=== PATIENT | female | born 1945 | race Caucasian/White ===

== ENCOUNTER 2018-09-30 14:11 | Inpatient (IN) | payer MEDICARE, SELFPAY ==
[2018-09-30] VITALS (8 sets, daily range): BP systolic 121–151; BP diastolic 58–91; PULSE 81–96; RESP 18–24; TEMP 36.4–36.9; O2SAT 88–97; BMI 33.9
--- NOTE | 2018-09-30 14:27 | ED.URI ---
HPI - URI/Sore Throat <NICHOLAS Smith - Last Filed: 09/30/18 21:54> General Chief Complaint: Upper Respiratory Symptoms Stated Complaint: SOB Time Seen by Provider: 09/30/18 14:27 Source: patient Mode of arrival: ambulatory Limitations: no limitations History of Present Illness HPI Narrative: 72-year-old female with history of hypertension and hypothyroidism that is a former smoker here for complaint of shortness of breath with cough that has been productive at times over the past 3 days. She states she has also had a fever. She states she has had yellow exudate over the past couple of days. She denies any chest pain. Positive p.o. intake although she has had a decreased appetite. No nausea or vomiting. She denies any contacts with similar symptoms. She also reports having generalized malaise. MD Complaint: fever and cough Related Data Home Medications Medication Instructions Recorded Confirmed Stool Softener 1 dose PO PRN PRN 09/30/18 09/30/18 Vitamins 1 dose PO DAILY 09/30/18 09/30/18 hydrochlorothiazide 50 mg PO DAILY 09/30/18 09/30/18 levothyroxine 50 mcg PO DAILY 09/30/18 09/30/18 metoprolol succinate 25 mg PO DAILY 09/30/18 09/30/18 mirtazapine 30 mg PO BEDTIME 09/30/18 09/30/18 Allergies Allergy/AdvReac Type Severity Reaction Status Date / Time Penicillins Allergy Hives Verified 09/30/18 14:19 Review of Systems <NICHOLAS Smith - Last Filed: 09/30/18 21:54> Constitutional Reports chills, Reports fever(s), Denies lethargy and Denies weakness Eyes Denies change in vision, Denies eye discharge, Denies irritation and Denies loss of vision ENT Ears, Nose, Mouth, and Throat: Denies change in voice, Denies neck pain, Denies sore throat and Denies throat swelling Cardiovascular Denies chest pain, Denies irregular heart rhythm, Denies lightheadedness, Denies palpitations, Reports dyspnea and Denies orthopnea Respiratory Reports chest congestion, Reports dyspnea and Denies wheezing Gastrointestinal Gastrointestinal: Denies abdominal pain, Denies change in bowel habits, Denies diarrhea, Denies nausea and Denies vomiting Genitourinary Denies hematuria, Denies flank pain, Denies urinary incontinence and Denies urinary urgency Musculoskeletal Denies neck pain Integumentary/Breasts Denies pruritus, Denies erythema, Denies rash and Denies wounds Neurologic Denies confusion, Denies loss of vision and Denies weakness Psychiatric Denies anxiety, Denies confusion, Denies depression, Denies homicidal ideation and Denies suicidal ideation Endocrine Denies palpitations Hematologic/Lymphatic Denies easy bruising Allergic/Immunologic Denies urticaria, Denies throat swelling and Denies wheezing PFSH <NICHOLAS Smith - Last Filed: 09/30/18 21:54> Medical History Hypertension (Acute) Hypothyroidism (Acute) Surgical History H/O hysterectomy for benign disease (Acute) History of tonsillectomy (Acute) Family History Mother Cerebral aneurysm Social History household members: spouse Smoking Status: Former smoker alcohol intake: never Family History Mother Cerebral aneurysm Social History household members: spouse Smoking Status: Former smoker alcohol intake: never Exam <NICHOLAS Smith - Last Filed: 09/30/18 21:54> Initial Vital Signs Initial Vital Signs: Vital Signs Pulse Rate 96 H 09/30/18 14:12 Respiratory Rate 20 09/30/18 14:12 Blood Pressure 151/91 H 09/30/18 14:12 Pulse Oximetry 88 L 09/30/18 14:12 Const General: cooperative and well developed Nutritional Appearance: well nourished Orientation: alert, awake, oriented x3 and not confused [facility] Face and sinus: no sinus tenderness Mouth: oral mucosae normal and moist mucous membranes Throat: posterior oropharynx normal Eyes Conjunctivae: conjunctivae normal Sclera: sclerae normal Pupils: PERRL EOM: EOM intact bilaterally Resp Effort & Inspection: normal respiratory effort, able to speak in complete sentences, no respiratory distress and no use of accessory muscles Auscultation: clear to auscultation bilaterally, no rales, no rhonchi and no wheezes Cardio Rate: regular rate Rhythm: regular rhythm Heart Sounds: no click, no gallops, no murmurs and no rubs Pulses: normal peripheral pulses Skin General: no rashes or lesions noted, No jaundice and No petechiae Neuro General: alert, oriented x3, gait normal and no focal motor deficits Speech: speech normal <Jose Antonio Pino DO - Last Filed: 10/01/18 18:24> Initial Vital Signs Initial Vital Signs: Vital Signs Pulse Rate 96 H 09/30/18 14:12 Respiratory Rate 20 09/30/18 14:12 Blood Pressure 151/91 H 09/30/18 14:12 Pulse Oximetry 88 L 09/30/18 14:12 Course <NICHOLAS Smith - Last Filed: 09/30/18 21:54> Orders Ordered: Acetaminophen (Tylenol) 650 mg PO Q6HR PRN PRN Reason: As Needed for Fever/Mild Pain Last Admin: 09/30/18 19:42 Dose: 650 mg Hydrocodone Bitart/Acetaminophen (Alicia 5/325) 1 tab PO Q4HR PRN PRN Reason: Pain, Moderate (4-6) Albuterol (Ventolin) 2.5 mg INH [id number] [facility] Last Admin: 10/01/18 13:18 Dose: 2.5 mg Admin: 10/01/18 09:11 Dose: 2.5 mg Admin: 10/01/18 05:00 Dose: 2.5 mg Admin: 09/30/18 23:46 Dose: Not Given Admin: 09/30/18 23:45 Dose: Not Given Bisacodyl (Dulcolax) 10 mg PO DAILY PRN PRN Reason: Constipation Last Admin: 09/30/18 21:11 Dose: 10 mg Enoxaparin Sodium (Lovenox) 40 mg SUBCUT DAILY [facility] Last Admin: 10/01/18 08:29 Dose: 40 mg Dextrose/Sodium Chloride (Dextrose 5%-0.9% Ns) 1,000 mls @ 100 mls/hr IV CONT [facility] Last Admin: 10/01/18 16:32 Dose: 100 mls/hr Infusion: 10/01/18 14:31 Dose: 100 mls/hr Admin: 10/01/18 04:31 Dose: 100 mls/hr Infusion: 10/01/18 04:31 Dose: 100 mls/hr Admin: 09/30/18 19:43 Dose: 100 mls/hr Ibuprofen (Advil) 600 mg PO Q6H PRN PRN Reason: As Needed for Fever/Mild Pain Levothyroxine Sodium (Synthroid) 50 mcg PO 0600 [facility] Last Admin: 10/01/18 07:01 Dose: 50 mcg Metoprolol Succinate (Toprol Xl) 25 mg PO DAILY [facility] Last Admin: 10/01/18 08:29 Dose: 25 mg Mirtazapine (Remeron) 30 mg PO BEDTIME [facility] Last Admin: 09/30/18 21:11 Dose: 30 mg Ondansetron HCl (Zofran) 4 mg IV Q8HR PRN PRN Reason: Nausea And Vomiting Oseltamivir Phosphate (Tamiflu) 75 mg PO BID [facility] Last Admin: 10/01/18 08:29 Dose: 75 mg Discontinued Medications Albuterol/Ipratropium (Duoneb) 3 ml INH NOW ONE Stop: 09/30/18 14:51 Last Admin: 09/30/18 15:31 Dose: 3 ml Sodium Chloride (Normal Saline 0.9%) 1,000 mls @ 1,000 mls/hr IV BOLUS ONE Stop: 09/30/18 15:49 Last Infusion: 09/30/18 16:44 Dose: 0 mls/hr Admin: 09/30/18 15:12 Dose: 1,000 mls/hr Oseltamivir Phosphate (Tamiflu) 75 mg PO NOW ONE Stop: 09/30/18 16:21 Last Admin: 09/30/18 16:37 Dose: 75 mg Vital Signs - 8 hr 10/01/18 11:30 10/01/18 13:27 10/01/18 15:30 Temperature 96.7 F L Pulse Rate 80 71 Respiratory Rate 18 18 Blood Pressure 130/89 Pulse Oximetry 93 93 90 L 10/01/18 15:35 10/01/18 15:43 10/01/18 16:59 Temperature 98.0 F Pulse Rate 78 Respiratory Rate 20 Blood Pressure 116/56 L Pulse Oximetry 96 94 94 <Jose Antonio Pino DO - Last Filed: 10/01/18 18:24> Orders Ordered: Acetaminophen (Tylenol) 650 mg PO Q6HR PRN PRN Reason: As Needed for Fever/Mild Pain Last Admin: 09/30/18 19:42 Dose: 650 mg Hydrocodone Bitart/Acetaminophen (Alicia 5/325) 1 tab PO Q4HR PRN PRN Reason: Pain, Moderate (4-6) Albuterol (Ventolin) 2.5 mg INH [id number] [facility] Last Admin: 10/01/18 13:18 Dose: 2.5 mg Admin: 10/01/18 09:11 Dose: 2.5 mg Admin: 10/01/18 05:00 Dose: 2.5 mg Admin: 09/30/18 23:46 Dose: Not Given Admin: 09/30/18 23:45 Dose: Not Given Bisacodyl (Dulcolax) 10 mg PO DAILY PRN PRN Reason: Constipation Last Admin: 09/30/18 21:11 Dose: 10 mg Enoxaparin Sodium (Lovenox) 40 mg SUBCUT DAILY [facility] Last Admin: 10/01/18 08:29 Dose: 40 mg Dextrose/Sodium Chloride (Dextrose 5%-0.9% Ns) 1,000 mls @ 100 mls/hr IV CONT [facility] Last Admin: 10/01/18 16:32 Dose: 100 mls/hr Infusion: 10/01/18 14:31 Dose: 100 mls/hr Admin: 10/01/18 04:31 Dose: 100 mls/hr Infusion: 10/01/18 04:31 Dose: 100 mls/hr Admin: 09/30/18 19:43 Dose: 100 mls/hr Ibuprofen (Advil) 600 mg PO Q6H PRN PRN Reason: As Needed for Fever/Mild Pain Levothyroxine Sodium (Synthroid) 50 mcg PO 0600 [facility] Last Admin: 10/01/18 07:01 Dose: 50 mcg Metoprolol Succinate (Toprol Xl) 25 mg PO DAILY [facility] Last Admin: 10/01/18 08:29 Dose: 25 mg Mirtazapine (Remeron) 30 mg PO BEDTIME [facility] Last Admin: 09/30/18 21:11 Dose: 30 mg Ondansetron HCl (Zofran) 4 mg IV Q8HR PRN PRN Reason: Nausea And Vomiting Oseltamivir Phosphate (Tamiflu) 75 mg PO BID [facility] Last Admin: 10/01/18 08:29 Dose: 75 mg Discontinued Medications Albuterol/Ipratropium (Duoneb) 3 ml INH NOW ONE Stop: 09/30/18 14:51 Last Admin: 09/30/18 15:31 Dose: 3 ml Sodium Chloride (Normal Saline 0.9%) 1,000 mls @ 1,000 mls/hr IV BOLUS ONE Stop: 09/30/18 15:49 Last Infusion: 09/30/18 16:44 Dose: 0 mls/hr Admin: 09/30/18 15:12 Dose: 1,000 mls/hr Oseltamivir Phosphate (Tamiflu) 75 mg PO NOW ONE Stop: 09/30/18 16:21 Last Admin: 09/30/18 16:37 Dose: 75 mg Vital Signs - 8 hr 10/01/18 11:30 10/01/18 13:27 10/01/18 15:30 Temperature 96.7 F L Pulse Rate 80 71 Respiratory Rate 18 18 Blood Pressure 130/89 Pulse Oximetry 93 93 90 L 10/01/18 15:35 10/01/18 15:43 10/01/18 16:59 Temperature 98.0 F Pulse Rate 78 Respiratory Rate 20 Blood Pressure 116/56 L Pulse Oximetry 96 94 94 MDM - URI/Sore Throat <NICHOLAS Smith - Last Filed: 09/30/18 21:54> Lab Data Result diagrams: 10/01/18 05:07 10/01/18 05:07 Lab Results 09/30/18 09/30/18 09/30/18 Range/Units 14:42 14:43 14:43 WBC 6.9 (4.5-11.0) X10^3/uL RBC 5.19 (4.0-5.2) X10^6/uL Hgb 16.3 H (12.0-16.0) g/dL Hct 48.7 H (36-46) % MCV 93.9 (80-100) fL MCH 31.4 (26-34) PG MCHC 33.5 (30-36) % RDW 14.5 (11.6-14.8) % Plt Count 176 (150-400) X10^3/uL Neut % (Auto) 59.9 (50-75) % Lymph % (Auto) 23.8 L (25-40) % Hunt % (Auto) 15.2 H (3-14) % Eos % (Auto) 0.4 L (2-4) % Baso % (Auto) 0.7 (0-2) % Neut # (Auto) 4100 (1922-2223) /uL Lymph # (Auto) 1600 (6062-8808) /uL Hunt # (Auto) 1000 H (0-900) /uL Eos # (Auto) 0 (0-450) /uL Baso # (Auto) 100 (0-100) /uL D-Dimer (<230) ng/mL Sodium (137-145) mmol/L Potassium (3.4-5.1) mmol/L Chloride (98-107) mmol/L Carbon Dioxide (22-32) mmol/L BUN (7-17) mg/dL Creatinine (0.52-1.04) mg/dL Estimated GFR (>60) mL/min BUN/Creatinine Ratio (6-22) Glucose (80-110) mg/dL Lactate (0.7-2.1) mmol/L Calcium (8.4-10.2) mg/dL Total Bilirubin (0.2-1.3) mg/dL AST (14-36) IU/L ALT (9-52) IU/L Alkaline Phosphatase (38-126) U/L Total Creatine Kinase (30-135) U/L CK-MB (CK-2) (<2.37) ng/mL CK-MB (CK-2) Rel Index (1.5-5.0) % Troponin I (0.01-0.034) ng/mL B-Natriuretic Peptide < 100 (<100) Total Protein (6.3-8.2) g/dL Albumin (3.5-5.0) g/dL Globulin (1.7-4.1) g/dL Albumin/Globulin Ratio (1.0-2.8) Procalcitonin (<0.5) ng/mL Urine Color Yellow Urine Appearance Cloudy Urine pH 6.0 (4.5-8.0) Ur Specific [place] 1.020 (1.000-1.035) Urine Protein 2+ H (Negative) Urine Glucose (UA) Negative (Negative) g/dL Urine Ketones Trace H (NEGATIVE) Urine Occult Blood Negative (Negative) Urine Nitrate Negative (Negative) Urine Bilirubin 1+ H (NEGATIVE) Urine Ictotest Negative (Negative) Urine Urobilinogen 0.2 (0.2) E.U./dL Ur Leukocyte Esterase Negative (NEGATIVE) Urine RBC None seen (0-5/HPF) Urine WBC 0-1/hpf (0-5/HPF) Ur Squamous Epith Cells 1-5 /hpf Amorphous Sediment 2+ Urine Bacteria Few (2-10) H (None) Ur Culture Indicated? Cult not indicated Chlamy pneumoniae PCR (Not Detect) Adenovirus (PCR) (Not Detect) B.parapertussis DNA PCR (Not Detect) Coronavirus OC43 (PCR) (Not Detect) Coronavirus HKU1 (PCR) (Not Detect) Coronavirus 229E (PCR) (Not Detect) Coronavirus NL63 (PCR) (Not Detect) Human Metapneumovir PCR (Not Detect) Influenza Type A (PCR) (Not Detect) Influenza Type B (PCR) (Not Detect) Influenza A & B (PCR) Positive, type a A (Negative) M. pneumoniae (PCR) (Not Detect) Parainfluenza 1 (PCR) (Not Detect) Parainfluenza 2 (PCR) (Not Detect) Parainfluenza 3 (PCR) (Not Detect) Parainfluenza 4 (PCR) (Not Detect) RSV (PCR) (Not Detect) Entero/Rhino (PCR) (Not Detect) 09/30/18 09/30/18 09/30/18 Range/Units 14:43 15:00 15:00 WBC (4.5-11.0) X10^3/uL RBC (4.0-5.2) X10^6/uL Hgb (12.0-16.0) g/dL Hct (36-46) % MCV (80-100) fL MCH (26-34) PG MCHC (30-36) % RDW (11.6-14.8) % Plt Count (150-400) X10^3/uL Neut % (Auto) (50-75) % Lymph % (Auto) (25-40) % Hunt % (Auto) (3-14) % Eos % (Auto) (2-4) % Baso % (Auto) (0-2) % Neut # (Auto) (9578-3719) /uL Lymph # (Auto) (6048-5276) /uL Hunt # (Auto) (0-900) /uL Eos # (Auto) (0-450) /uL Baso # (Auto) (0-100) /uL D-Dimer < 200 (<230) ng/mL Sodium (137-145) mmol/L Potassium (3.4-5.1) mmol/L Chloride (98-107) mmol/L Carbon Dioxide (22-32) mmol/L BUN (7-17) mg/dL Creatinine (0.52-1.04) mg/dL Estimated GFR (>60) mL/min BUN/Creatinine Ratio (6-22) Glucose (80-110) mg/dL Lactate 1.5 (0.7-2.1) mmol/L Calcium (8.4-10.2) mg/dL Total Bilirubin (0.2-1.3) mg/dL AST (14-36) IU/L ALT (9-52) IU/L Alkaline Phosphatase (38-126) U/L Total Creatine Kinase (30-135) U/L CK-MB (CK-2) (<2.37) ng/mL CK-MB (CK-2) Rel Index (1.5-5.0) % Troponin I (0.01-0.034) ng/mL B-Natriuretic Peptide (<100) Total Protein (6.3-8.2) g/dL Albumin (3.5-5.0) g/dL Globulin (1.7-4.1) g/dL Albumin/Globulin Ratio (1.0-2.8) Procalcitonin < 0.05 (<0.5) ng/mL Urine Color Urine Appearance Urine pH (4.5-8.0) Ur Specific [place] (1.000-1.035) Urine Protein (Negative) Urine Glucose (UA) (Negative) g/dL Urine Ketones (NEGATIVE) Urine Occult Blood (Negative) Urine Nitrate (Negative) Urine Bilirubin (NEGATIVE) Urine Ictotest (Negative) Urine Urobilinogen (0.2) E.U./dL Ur Leukocyte Esterase (NEGATIVE) Urine RBC (0-5/HPF) Urine WBC (0-5/HPF) Ur Squamous Epith Cells Amorphous Sediment Urine Bacteria (None) Ur Culture Indicated? Chlamy pneumoniae PCR (Not Detect) Adenovirus (PCR) (Not Detect) B.parapertussis DNA PCR (Not Detect) Coronavirus OC43 (PCR) (Not Detect) Coronavirus HKU1 (PCR) (Not Detect) Coronavirus 229E (PCR) (Not Detect) Coronavirus NL63 (PCR) (Not Detect) Human Metapneumovir PCR (Not Detect) Influenza Type A (PCR) (Not Detect) Influenza Type B (PCR) (Not Detect) Influenza A & B (PCR) (Negative) M. pneumoniae (PCR) (Not Detect) Parainfluenza 1 (PCR) (Not Detect) Parainfluenza 2 (PCR) (Not Detect) Parainfluenza 3 (PCR) (Not Detect) Parainfluenza 4 (PCR) (Not Detect) RSV (PCR) (Not Detect) Entero/Rhino (PCR) (Not Detect) 09/30/18 09/30/18 10/01/18 Range/Units 15:19 22:05 05:07 WBC 5.1 (4.5-11.0) X10^3/uL RBC 4.58 (4.0-5.2) X10^6/uL Hgb 14.2 (12.0-16.0) g/dL Hct 42.8 (36-46) % MCV 93.5 (80-100) fL MCH 31.0 (26-34) PG MCHC 33.1 (30-36) % RDW 14.4 (11.6-14.8) % Plt Count 154 (150-400) X10^3/uL Neut % (Auto) 50.4 (50-75) % Lymph % (Auto) 32.4 (25-40) % Hunt % (Auto) 15.1 H (3-14) % Eos % (Auto) 1.1 L (2-4) % Baso % (Auto) 1.0 (0-2) % Neut # (Auto) 2600 (3773-3224) /uL Lymph # (Auto) 1700 (1935-3417) /uL Hunt # (Auto) 800 (0-900) /uL Eos # (Auto) 100 (0-450) /uL Baso # (Auto) 100 (0-100) /uL D-Dimer (<230) ng/mL Sodium 139 (137-145) mmol/L Potassium 3.7 (3.4-5.1) mmol/L Chloride 97 L (98-107) mmol/L Carbon Dioxide 29 (22-32) mmol/L BUN 30 H (7-17) mg/dL Creatinine 0.70 (0.52-1.04) mg/dL Estimated GFR > 60.0 (>60) mL/min BUN/Creatinine Ratio 42.9 H (6-22) Glucose 111 H (80-110) mg/dL Lactate (0.7-2.1) mmol/L Calcium 9.4 (8.4-10.2) mg/dL Total Bilirubin 0.6 (0.2-1.3) mg/dL AST 43 H (14-36) IU/L ALT 48 (9-52) IU/L Alkaline Phosphatase 76 (38-126) U/L Total Creatine Kinase 132 (30-135) U/L CK-MB (CK-2) 1.29 (<2.37) ng/mL CK-MB (CK-2) Rel Index 1.0 L (1.5-5.0) % Troponin I < 0.012 (0.01-0.034) ng/mL B-Natriuretic Peptide < 100 (<100) Total Protein 8.2 (6.3-8.2) g/dL Albumin 4.5 (3.5-5.0) g/dL Globulin 3.7 (1.7-4.1) g/dL Albumin/Globulin Ratio 1.2 (1.0-2.8) Procalcitonin (<0.5) ng/mL Urine Color Urine Appearance Urine pH (4.5-8.0) Ur Specific [place] (1.000-1.035) Urine Protein (Negative) Urine Glucose (UA) (Negative) g/dL Urine Ketones (NEGATIVE) Urine Occult Blood (Negative) Urine Nitrate (Negative) Urine Bilirubin (NEGATIVE) Urine Ictotest (Negative) Urine Urobilinogen (0.2) E.U./dL Ur Leukocyte Esterase (NEGATIVE) Urine RBC (0-5/HPF) Urine WBC (0-5/HPF) Ur Squamous Epith Cells Amorphous Sediment Urine Bacteria (None) Ur Culture Indicated? Chlamy pneumoniae PCR Not detected (Not Detect) Adenovirus (PCR) Not detected (Not Detect) B.parapertussis DNA PCR Not detected (Not Detect) Coronavirus OC43 (PCR) Not detected (Not Detect) Coronavirus HKU1 (PCR) Not detected (Not Detect) Coronavirus 229E (PCR) Not detected (Not Detect) Coronavirus NL63 (PCR) Not detected (Not Detect) Human Metapneumovir PCR Not detected (Not Detect) Influenza Type A (PCR) Detected H (Not Detect) Influenza Type B (PCR) Not detected (Not Detect) Influenza A & B (PCR) (Negative) M. pneumoniae (PCR) Not detected (Not Detect) Parainfluenza 1 (PCR) Not detected (Not Detect) Parainfluenza 2 (PCR) Not detected (Not Detect) Parainfluenza 3 (PCR) Not detected (Not Detect) Parainfluenza 4 (PCR) Not detected (Not Detect) RSV (PCR) Not detected (Not Detect) Entero/Rhino (PCR) Not detected (Not Detect) 10/01/18 Range/Units 05:07 WBC (4.5-11.0) X10^3/uL RBC (4.0-5.2) X10^6/uL Hgb (12.0-16.0) g/dL Hct (36-46) % MCV (80-100) fL MCH (26-34) PG MCHC (30-36) % RDW (11.6-14.8) % Plt Count (150-400) X10^3/uL Neut % (Auto) (50-75) % Lymph % (Auto) (25-40) % Hunt % (Auto) (3-14) % Eos % (Auto) (2-4) % Baso % (Auto) (0-2) % Neut # (Auto) (0339-5544) /uL Lymph # (Auto) (2190-6696) /uL Hunt # (Auto) (0-900) /uL Eos # (Auto) (0-450) /uL Baso # (Auto) (0-100) /uL D-Dimer (<230) ng/mL Sodium 142 (137-145) mmol/L Potassium 3.4 (3.4-5.1) mmol/L Chloride 101 (98-107) mmol/L Carbon Dioxide 33 H (22-32) mmol/L BUN 19 H (7-17) mg/dL Creatinine 0.70 (0.52-1.04) mg/dL Estimated GFR > 60.0 (>60) mL/min BUN/Creatinine Ratio 27.1 H (6-22) Glucose 112 H (80-110) mg/dL Lactate (0.7-2.1) mmol/L Calcium 8.6 (8.4-10.2) mg/dL Total Bilirubin 0.4 (0.2-1.3) mg/dL AST 40 H (14-36) IU/L ALT 44 (9-52) IU/L Alkaline Phosphatase 64 (38-126) U/L Total Creatine Kinase (30-135) U/L CK-MB (CK-2) (<2.37) ng/mL CK-MB (CK-2) Rel Index (1.5-5.0) % Troponin I (0.01-0.034) ng/mL B-Natriuretic Peptide (<100) Total Protein 7.0 (6.3-8.2) g/dL Albumin 3.8 (3.5-5.0) g/dL Globulin 3.2 (1.7-4.1) g/dL Albumin/Globulin Ratio 1.2 (1.0-2.8) Procalcitonin (<0.5) ng/mL Urine Color Urine Appearance Urine pH (4.5-8.0) Ur Specific [place] (1.000-1.035) Urine Protein (Negative) Urine Glucose (UA) (Negative) g/dL Urine Ketones (NEGATIVE) Urine Occult Blood (Negative) Urine Nitrate (Negative) Urine Bilirubin (NEGATIVE) Urine Ictotest (Negative) Urine Urobilinogen (0.2) E.U./dL Ur Leukocyte Esterase (NEGATIVE) Urine RBC (0-5/HPF) Urine WBC (0-5/HPF) Ur Squamous Epith Cells Amorphous Sediment Urine Bacteria (None) Ur Culture Indicated? Chlamy pneumoniae PCR (Not Detect) Adenovirus (PCR) (Not Detect) B.parapertussis DNA PCR (Not Detect) Coronavirus OC43 (PCR) (Not Detect) Coronavirus HKU1 (PCR) (Not Detect) Coronavirus 229E (PCR) (Not Detect) Coronavirus NL63 (PCR) (Not Detect) Human Metapneumovir PCR (Not Detect) Influenza Type A (PCR) (Not Detect) Influenza Type B (PCR) (Not Detect) Influenza A & B (PCR) (Negative) M. pneumoniae (PCR) (Not Detect) Parainfluenza 1 (PCR) (Not Detect) Parainfluenza 2 (PCR) (Not Detect) Parainfluenza 3 (PCR) (Not Detect) Parainfluenza 4 (PCR) (Not Detect) RSV (PCR) (Not Detect) Entero/Rhino (PCR) (Not Detect) Imaging Data Chest x-ray: Radiologist's impression: [address] [address] XRay Report Signed Patient: Zuleima Mendoza SMR#: [id number] : 8Acct:[id number] Age/Sex: 72 / FDate of Service: 09/30/18 Loc: ED Accession Number: [id number] Procedure: XR chest 1V Ordering Provider: Yovani Le PROCEDURE: XR CHEST 1V INDICATIONS: Cough fever shortness of breath TECHNIQUE: One view of the chest was acquired. COMPARISON: None. FINDINGS: Surgical changes and devices: None. Lungs and pleura: Lungs are abnormal with a generalized pulmonary edema pattern. No pleural effusions or pneumothorax. Mediastinum: Mediastinal contours appear normal. Heart size is at the upper limits of normal. Bones and chest wall: No suspicious bony lesions. Overlying soft tissues appear unremarkable. IMPRESSION: Mild pulmonary edema pattern, heart size at the upper limits of normal. A focal pneumonia is not found. Dictated by: Ben Roman M.D. on 09/30/2018 at 15:12 Approved by: Ben Roman M.D. on 09/30/2018 at 15:13 ECG Data Interpretation: EKG shows sinus rhythm with no ST elevation or depression. Ventricular rate of 94. Pr interval of 156. QRS duration of 95. QTC of 402. MDM Narrative Medical decision making narrative: CBC was obtained and was negative for elevated white count and otherwise unremarkable. chemistry panel was obtained was also unremarkable. Cardiac enzymes were obtained and were negative. A procalcitonin was negative. BNP was normal. Lactate was normal. Urinalysis was negative for urinary tract infection. Chest x-ray was obtained and read as generalized pulmonary edema pattern no signs of pneumonia. Influenza swab was obtained was positive. She was given a DuoNeb treatment in the emergency room which seemed to help her symptoms make her feel better however she still was not able to maintain O2 saturations on room air and would drop into the mid to high 80s. She was started on Tamiflu a in the emergency room. Due to a decreased oxygen saturation she is admitted to the hospital for supportive care. Discussed case with Dr. Munson who accepted patient. <Jose Antonio Pino, DO - Last Filed: 10/01/18 18:24> Lab Data Lab Results 09/30/18 09/30/18 09/30/18 Range/Units 14:42 14:43 14:43 WBC 6.9 (4.5-11.0) X10^3/uL RBC 5.19 (4.0-5.2) X10^6/uL Hgb 16.3 H (12.0-16.0) g/dL Hct 48.7 H (36-46) % MCV 93.9 (80-100) fL MCH 31.4 (26-34) PG MCHC 33.5 (30-36) % RDW 14.5 (11.6-14.8) % Plt Count 176 (150-400) X10^3/uL Neut % (Auto) 59.9 (50-75) % Lymph % (Auto) 23.8 L (25-40) % Hunt % (Auto) 15.2 H (3-14) % Eos % (Auto) 0.4 L (2-4) % Baso % (Auto) 0.7 (0-2) % Neut # (Auto) 4100 (8150-2830) /uL Lymph # (Auto) 1600 (2964-3841) /uL Hunt # (Auto) 1000 H (0-900) /uL Eos # (Auto) 0 (0-450) /uL Baso # (Auto) 100 (0-100) /uL D-Dimer (<230) ng/mL Sodium (137-145) mmol/L Potassium (3.4-5.1) mmol/L Chloride (98-107) mmol/L Carbon Dioxide (22-32) mmol/L BUN (7-17) mg/dL Creatinine (0.52-1.04) mg/dL Estimated GFR (>60) mL/min BUN/Creatinine Ratio (6-22) Glucose (80-110) mg/dL Lactate (0.7-2.1) mmol/L Calcium (8.4-10.2) mg/dL Total Bilirubin (0.2-1.3) mg/dL AST (14-36) IU/L ALT (9-52) IU/L Alkaline Phosphatase (38-126) U/L Total Creatine Kinase (30-135) U/L CK-MB (CK-2) (<2.37) ng/mL CK-MB (CK-2) Rel Index (1.5-5.0) % Troponin I (0.01-0.034) ng/mL B-Natriuretic Peptide < 100 (<100) Total Protein (6.3-8.2) g/dL Albumin (3.5-5.0) g/dL Globulin (1.7-4.1) g/dL Albumin/Globulin Ratio (1.0-2.8) Procalcitonin (<0.5) ng/mL Urine Color Yellow Urine Appearance Cloudy Urine pH 6.0 (4.5-8.0) Ur Specific [place] 1.020 (1.000-1.035) Urine Protein 2+ H (Negative) Urine Glucose (UA) Negative (Negative) g/dL Urine Ketones Trace H (NEGATIVE) Urine Occult Blood Negative (Negative) Urine Nitrate Negative (Negative) Urine Bilirubin 1+ H (NEGATIVE) Urine Ictotest Negative (Negative) Urine Urobilinogen 0.2 (0.2) E.U./dL Ur Leukocyte Esterase Negative (NEGATIVE) Urine RBC None seen (0-5/HPF) Urine WBC 0-1/hpf (0-5/HPF) Ur Squamous Epith Cells 1-5 /hpf Amorphous Sediment 2+ Urine Bacteria Few (2-10) H (None) Ur Culture Indicated? Cult not indicated Chlamy pneumoniae PCR (Not Detect) Adenovirus (PCR) (Not Detect) B.parapertussis DNA PCR (Not Detect) Coronavirus OC43 (PCR) (Not Detect) Coronavirus HKU1 (PCR) (Not Detect) Coronavirus 229E (PCR) (Not Detect) Coronavirus NL63 (PCR) (Not Detect) Human Metapneumovir PCR (Not Detect) Influenza Type A (PCR) (Not Detect) Influenza Type B (PCR) (Not Detect) Influenza A & B (PCR) Positive, type a A (Negative) M. pneumoniae (PCR) (Not Detect) Parainfluenza 1 (PCR) (Not Detect) Parainfluenza 2 (PCR) (Not Detect) Parainfluenza 3 (PCR) (Not Detect) Parainfluenza 4 (PCR) (Not Detect) RSV (PCR) (Not Detect) Entero/Rhino (PCR) (Not Detect) 09/30/18 09/30/18 09/30/18 Range/Units 14:43 15:00 15:00 WBC (4.5-11.0) X10^3/uL RBC (4.0-5.2) X10^6/uL Hgb (12.0-16.0) g/dL Hct (36-46) % MCV (80-100) fL MCH (26-34) PG MCHC (30-36) % RDW (11.6-14.8) % Plt Count (150-400) X10^3/uL Neut % (Auto) (50-75) % Lymph % (Auto) (25-40) % Hunt % (Auto) (3-14) % Eos % (Auto) (2-4) % Baso % (Auto) (0-2) % Neut # (Auto) (2769-7148) /uL Lymph # (Auto) (3281-7813) /uL Hunt # (Auto) (0-900) /uL Eos # (Auto) (0-450) /uL Baso # (Auto) (0-100) /uL D-Dimer < 200 (<230) ng/mL Sodium (137-145) mmol/L Potassium (3.4-5.1) mmol/L Chloride (98-107) mmol/L Carbon Dioxide (22-32) mmol/L BUN (7-17) mg/dL Creatinine (0.52-1.04) mg/dL Estimated GFR (>60) mL/min BUN/Creatinine Ratio (6-22) Glucose (80-110) mg/dL Lactate 1.5 (0.7-2.1) mmol/L Calcium (8.4-10.2) mg/dL Total Bilirubin (0.2-1.3) mg/dL AST (14-36) IU/L ALT (9-52) IU/L Alkaline Phosphatase (38-126) U/L Total Creatine Kinase (30-135) U/L CK-MB (CK-2) (<2.37) ng/mL CK-MB (CK-2) Rel Index (1.5-5.0) % Troponin I (0.01-0.034) ng/mL B-Natriuretic Peptide (<100) Total Protein (6.3-8.2) g/dL Albumin (3.5-5.0) g/dL Globulin (1.7-4.1) g/dL Albumin/Globulin Ratio (1.0-2.8) Procalcitonin < 0.05 (<0.5) ng/mL Urine Color Urine Appearance Urine pH (4.5-8.0) Ur Specific [place] (1.000-1.035) Urine Protein (Negative) Urine Glucose (UA) (Negative) g/dL Urine Ketones (NEGATIVE) Urine Occult Blood (Negative) Urine Nitrate (Negative) Urine Bilirubin (NEGATIVE) Urine Ictotest (Negative) Urine Urobilinogen (0.2) E.U./dL Ur Leukocyte Esterase (NEGATIVE) Urine RBC (0-5/HPF) Urine WBC (0-5/HPF) Ur Squamous Epith Cells Amorphous Sediment Urine Bacteria (None) Ur Culture Indicated? Chlamy pneumoniae PCR (Not Detect) Adenovirus (PCR) (Not Detect) B.parapertussis DNA PCR (Not Detect) Coronavirus OC43 (PCR) (Not Detect) Coronavirus HKU1 (PCR) (Not Detect) Coronavirus 229E (PCR) (Not Detect) Coronavirus NL63 (PCR) (Not Detect) Human Metapneumovir PCR (Not Detect) Influenza Type A (PCR) (Not Detect) Influenza Type B (PCR) (Not Detect) Influenza A & B (PCR) (Negative) M. pneumoniae (PCR) (Not Detect) Parainfluenza 1 (PCR) (Not Detect) Parainfluenza 2 (PCR) (Not Detect) Parainfluenza 3 (PCR) (Not Detect) Parainfluenza 4 (PCR) (Not Detect) RSV (PCR) (Not Detect) Entero/Rhino (PCR) (Not Detect) 09/30/18 09/30/18 10/01/18 Range/Units 15:19 22:05 05:07 WBC 5.1 (4.5-11.0) X10^3/uL RBC 4.58 (4.0-5.2) X10^6/uL Hgb 14.2 (12.0-16.0) g/dL Hct 42.8 (36-46) % MCV 93.5 (80-100) fL MCH 31.0 (26-34) PG MCHC 33.1 (30-36) % RDW 14.4 (11.6-14.8) % Plt Count 154 (150-400) X10^3/uL Neut % (Auto) 50.4 (50-75) % Lymph % (Auto) 32.4 (25-40) % Hunt % (Auto) 15.1 H (3-14) % Eos % (Auto) 1.1 L (2-4) % Baso % (Auto) 1.0 (0-2) % Neut # (Auto) 2600 (4307-5734) /uL Lymph # (Auto) 1700 (5039-7414) /uL Hunt # (Auto) 800 (0-900) /uL Eos # (Auto) 100 (0-450) /uL Baso # (Auto) 100 (0-100) /uL D-Dimer (<230) ng/mL Sodium 139 (137-145) mmol/L Potassium 3.7 (3.4-5.1) mmol/L Chloride 97 L (98-107) mmol/L Carbon Dioxide 29 (22-32) mmol/L BUN 30 H (7-17) mg/dL Creatinine 0.70 (0.52-1.04) mg/dL Estimated GFR > 60.0 (>60) mL/min BUN/Creatinine Ratio 42.9 H (6-22) Glucose 111 H (80-110) mg/dL Lactate (0.7-2.1) mmol/L Calcium 9.4 (8.4-10.2) mg/dL Total Bilirubin 0.6 (0.2-1.3) mg/dL AST 43 H (14-36) IU/L ALT 48 (9-52) IU/L Alkaline Phosphatase 76 (38-126) U/L Total Creatine Kinase 132 (30-135) U/L CK-MB (CK-2) 1.29 (<2.37) ng/mL CK-MB (CK-2) Rel Index 1.0 L (1.5-5.0) % Troponin I < 0.012 (0.01-0.034) ng/mL B-Natriuretic Peptide < 100 (<100) Total Protein 8.2 (6.3-8.2) g/dL Albumin 4.5 (3.5-5.0) g/dL Globulin 3.7 (1.7-4.1) g/dL Albumin/Globulin Ratio 1.2 (1.0-2.8) Procalcitonin (<0.5) ng/mL Urine Color Urine Appearance Urine pH (4.5-8.0) Ur Specific [place] (1.000-1.035) Urine Protein (Negative) Urine Glucose (UA) (Negative) g/dL Urine Ketones (NEGATIVE) Urine Occult Blood (Negative) Urine Nitrate (Negative) Urine Bilirubin (NEGATIVE) Urine Ictotest (Negative) Urine Urobilinogen (0.2) E.U./dL Ur Leukocyte Esterase (NEGATIVE) Urine RBC (0-5/HPF) Urine WBC (0-5/HPF) Ur Squamous Epith Cells Amorphous Sediment Urine Bacteria (None) Ur Culture Indicated? Chlamy pneumoniae PCR Not detected (Not Detect) Adenovirus (PCR) Not detected (Not Detect) B.parapertussis DNA PCR Not detected (Not Detect) Coronavirus OC43 (PCR) Not detected (Not Detect) Coronavirus HKU1 (PCR) Not detected (Not Detect) Coronavirus 229E (PCR) Not detected (Not Detect) Coronavirus NL63 (PCR) Not detected (Not Detect) Human Metapneumovir PCR Not detected (Not Detect) Influenza Type A (PCR) Detected H (Not Detect) Influenza Type B (PCR) Not detected (Not Detect) Influenza A & B (PCR) (Negative) M. pneumoniae (PCR) Not detected (Not Detect) Parainfluenza 1 (PCR) Not detected (Not Detect) Parainfluenza 2 (PCR) Not detected (Not Detect) Parainfluenza 3 (PCR) Not detected (Not Detect) Parainfluenza 4 (PCR) Not detected (Not Detect) RSV (PCR) Not detected (Not Detect) Entero/Rhino (PCR) Not detected (Not Detect) 10/01/18 Range/Units 05:07 WBC (4.5-11.0) X10^3/uL RBC (4.0-5.2) X10^6/uL Hgb (12.0-16.0) g/dL Hct (36-46) % MCV (80-100) fL MCH (26-34) PG MCHC (30-36) % RDW (11.6-14.8) % Plt Count (150-400) X10^3/uL Neut % (Auto) (50-75) % Lymph % (Auto) (25-40) % Hunt % (Auto) (3-14) % Eos % (Auto) (2-4) % Baso % (Auto) (0-2) % Neut # (Auto) (3353-7648) /uL Lymph # (Auto) (3267-7275) /uL Hunt # (Auto) (0-900) /uL Eos # (Auto) (0-450) /uL Baso # (Auto) (0-100) /uL D-Dimer (<230) ng/mL Sodium 142 (137-145) mmol/L Potassium 3.4 (3.4-5.1) mmol/L Chloride 101 (98-107) mmol/L Carbon Dioxide 33 H (22-32) mmol/L BUN 19 H (7-17) mg/dL Creatinine 0.70 (0.52-1.04) mg/dL Estimated GFR > 60.0 (>60) mL/min BUN/Creatinine Ratio 27.1 H (6-22) Glucose 112 H (80-110) mg/dL Lactate (0.7-2.1) mmol/L Calcium 8.6 (8.4-10.2) mg/dL Total Bilirubin 0.4 (0.2-1.3) mg/dL AST 40 H (14-36) IU/L ALT 44 (9-52) IU/L Alkaline Phosphatase 64 (38-126) U/L Total Creatine Kinase (30-135) U/L CK-MB (CK-2) (<2.37) ng/mL CK-MB (CK-2) Rel Index (1.5-5.0) % Troponin I (0.01-0.034) ng/mL B-Natriuretic Peptide (<100) Total Protein 7.0 (6.3-8.2) g/dL Albumin 3.8 (3.5-5.0) g/dL Globulin 3.2 (1.7-4.1) g/dL Albumin/Globulin Ratio 1.2 (1.0-2.8) Procalcitonin (<0.5) ng/mL Urine Color Urine Appearance Urine pH (4.5-8.0) Ur Specific [place] (1.000-1.035) Urine Protein (Negative) Urine Glucose (UA) (Negative) g/dL Urine Ketones (NEGATIVE) Urine Occult Blood (Negative) Urine Nitrate (Negative) Urine Bilirubin (NEGATIVE) Urine Ictotest (Negative) Urine Urobilinogen (0.2) E.U./dL Ur Leukocyte Esterase (NEGATIVE) Urine RBC (0-5/HPF) Urine WBC (0-5/HPF) Ur Squamous Epith Cells Amorphous Sediment Urine Bacteria (None) Ur Culture Indicated? Chlamy pneumoniae PCR (Not Detect) Adenovirus (PCR) (Not Detect) B.parapertussis DNA PCR (Not Detect) Coronavirus OC43 (PCR) (Not Detect) Coronavirus HKU1 (PCR) (Not Detect) Coronavirus 229E (PCR) (Not Detect) Coronavirus NL63 (PCR) (Not Detect) Human Metapneumovir PCR (Not Detect) Influenza Type A (PCR) (Not Detect) Influenza Type B (PCR) (Not Detect) Influenza A & B (PCR) (Negative) M. pneumoniae (PCR) (Not Detect) Parainfluenza 1 (PCR) (Not Detect) Parainfluenza 2 (PCR) (Not Detect) Parainfluenza 3 (PCR) (Not Detect) Parainfluenza 4 (PCR) (Not Detect) RSV (PCR) (Not Detect) Entero/Rhino (PCR) (Not Detect) Discharge Plan Departure Patient Disposition: Admitted As Inpatient Clinical Impression: Influenza, Acute dyspnea Discharge Date/Time: 09/30/18 17:00 Interventions: ED Discharge Assessment Last Done: 09/30/18 16:49 Admit Date/Time: 09/30/18 16:28 Admit Provider: Ju Munson <Jose Antonio Pino DO - Last Filed: 10/01/18 18:24> Cosign ED Attending [place] Attestation: I was immediately available in the department for consultation. Documentation has been reviewed. I agree with assessment and plan.
--- NOTE | 2018-09-30 14:53 | DI.RAD.S_ITS ---
PROCEDURE: XR CHEST 1V INDICATIONS: Cough fever shortness of breath TECHNIQUE: One view of the chest was acquired. COMPARISON: None. FINDINGS: Surgical changes and devices: None. Lungs and pleura: Lungs are abnormal with a generalized pulmonary edema pattern. No pleural effusions or pneumothorax. Mediastinum: Mediastinal contours appear normal. Heart size is at the upper limits of normal. Bones and chest wall: No suspicious bony lesions. Overlying soft tissues appear unremarkable. IMPRESSION: Mild pulmonary edema pattern, heart size at the upper limits of normal. A focal pneumonia is not found. Dictated by: Ben Roman M.D. on 09/30/2018 at 15:12 Approved by: Ben Roman M.D. on 09/30/2018 at 15:13
[2018-09-30 15:02] LABS: Add Manual Diff / Slide Review NO; Basophils Absolute Auto 100 /uL (0-100); Basophils Percent Auto 0.7 % (0-2); Eosinophils Absolute Auto 0 /uL (0-450); Eosinophils Percent Auto 0.4 % (2-4); Hematocrit 48.7 % (36-46); Hemoglobin 16.3 g/dL (12.0-16.0); Lymphocytes Absolute Auto 1600 /uL (1100-4500); Lymphocytes Percent Auto 23.8 % (25-40); Mean Corpuscular HGB Conc 33.5 % (30-36); Mean Corpuscular Hemoglobin 31.4 PG (26-34); Mean Corpuscular Volume 93.9 fL (80-100); Monocytes Absolute Auto 1000 /uL (0-900); Monocytes Percent Auto 15.2 % (3-14); Neutrophils Absolute Auto 4100 /uL (1500-7000); Neutrophils Percent Auto 59.9 % (50-75); Platelet Count 176 X10^3/uL (150-400); Red Blood Cell Count 5.19 X10^6/uL (4.0-5.2); Red Cell Distribution Width 14.5 % (11.6-14.8); White Blood Cell Count 6.9 X10^3/uL (4.5-11.0)
[2018-09-30 15:10] LABS: RBC Urine None Seen (0-5/HPF)
[2018-09-30 15:12] LABS: Appearance Urine UA CLOUDY; Bilirubin Urine UA 1+ (NEGATIVE); Color Urine UA YELLOW; Glucose Urine UA NEGATIVE (Negative); Ketones Urine UA TRACE (NEGATIVE); Leukocyte Esterase Urine UA NEGATIVE (NEGATIVE); Nitrite Urine UA NEGATIVE (Negative); Occult Blood Urine UA NEGATIVE (Negative); Protein Urine UA 2+ (Negative); Urobilinogen Urine UA 0.2 E.U./dL (0.2)
[2018-09-30] MEDS: SODIUM CHLORIDE 0.9% 1,000 ML 1000 ML IV (15:12)
[2018-09-30 15:23] LABS: Amorphous Sediment Urine 2+; Bacteria Urine Few (2-10); Culture Indicated Urine Cult Not Indicated; Ictotest Urine Negative (Negative); Squamous Epithelial Cell Urine 1-5 /HPF; WBC Urine 0-1/HPF (0-5/HPF)
[2018-09-30 15:25] LABS: Lactate (Lactic Acid) 1.5 mmol/L (0.7-2.1)
[2018-09-30] MEDS: ALBUTEROL/IPRATROPIUM 3 ML AMPUL INH (15:31)
[2018-09-30 15:35] LABS: Alanine Aminotransferase 48 IU/L (9-52); Albumin 4.5 g/dL (3.5-5.0); Albumin Globulin Ratio 1.2 (1.0-2.8); Alkaline Phosphatase 76 U/L (38-126); Aspartate Aminotransferase 43 IU/L (14-36); BUN Creatinine Ratio 42.9 (6-22); Bilirubin Total 0.6 mg/dL (0.2-1.3); Blood Urea Nitrogen 30 mg/dL (7-17); Calcium 9.4 mg/dL (8.4-10.2); Carbon Dioxide 29 mmol/L (22-32); Chloride 97 mmol/L (98-107); Creatine Kinase 132 U/L (30-135); Estimated Glomerular Filt Rate > 60.0 mL/min (>60); Globulin 3.7 g/dL (1.7-4.1); Glucose 111 mg/dL (80-110); HEMOLYSIS 17 (0-50); Potassium 3.7 mmol/L (3.4-5.1); Sodium 139 mmol/L (137-145); Total Protein 8.2 g/dL (6.3-8.2)
[2018-09-30 15:36] LABS: Procalcitonin < 0.05 ng/mL (<0.5)
[2018-09-30 15:42] LABS: B Type Natriuretic Peptide < 100 (<100)
[2018-09-30 15:49] LABS: Troponin I < 0.012 ng/mL (0.01-0.034)
[2018-09-30 15:50] LABS: Creatine Kinase MB 1.29 ng/mL (<2.37)
--- NOTE | 2018-09-30 15:59 | ED_ITS ---
HPI - URI/Sore Throat <NICHOLAS Smith - Last Filed: 09/30/18 21:54> General Chief Complaint: Upper Respiratory Symptoms Stated Complaint: SOB Time Seen by Provider: 09/30/18 14:27 Source: patient Mode of arrival: ambulatory Limitations: no limitations History of Present Illness HPI Narrative: 72-year-old female with history of hypertension and hypothyroidism that is a former smoker here for complaint of shortness of breath with cough that has been productive at times over the past 3 days. She states she has also had a fever. She states she has had yellow exudate over the past couple of days. She denies any chest pain. Positive p.o. intake although she has had a decreased appetite. No nausea or vomiting. She denies any contacts with similar symptoms. She also reports having generalized malaise. MD Complaint: fever and cough Related Data Home Medications Medication Instructions Recorded Confirmed Stool Softener 1 dose PO PRN PRN 09/30/18 09/30/18 Vitamins 1 dose PO DAILY 09/30/18 09/30/18 hydrochlorothiazide 50 mg PO DAILY 09/30/18 09/30/18 levothyroxine 50 mcg PO DAILY 09/30/18 09/30/18 metoprolol succinate 25 mg PO DAILY 09/30/18 09/30/18 mirtazapine 30 mg PO BEDTIME 09/30/18 09/30/18 Allergies Allergy/AdvReac Type Severity Reaction Status Date / Time Penicillins Allergy Hives Verified 09/30/18 14:19 Review of Systems <NICHOLAS Smith - Last Filed: 09/30/18 21:54> Constitutional Reports chills, Reports fever(s), Denies lethargy and Denies weakness Eyes Denies change in vision, Denies eye discharge, Denies irritation and Denies loss of vision ENT Ears, Nose, Mouth, and Throat: Denies change in voice, Denies neck pain, Denies sore throat and Denies throat swelling Cardiovascular Denies chest pain, Denies irregular heart rhythm, Denies lightheadedness, Denies palpitations, Reports dyspnea and Denies orthopnea Respiratory Reports chest congestion, Reports dyspnea and Denies wheezing Gastrointestinal Gastrointestinal: Denies abdominal pain, Denies change in bowel habits, Denies diarrhea, Denies nausea and Denies vomiting Genitourinary Denies hematuria, Denies flank pain, Denies urinary incontinence and Denies uri nary urgency Musculoskeletal Denies neck pain Integumentary/Breasts Denies pruritus, Denies erythema, Denies rash and Denies wounds Neurologic Denies confusion, Denies loss of vision and Denies weakness Psychiatric Denies anxiety, Denies confusion, Denies depression, Denies homicidal ideation and Denies suicidal ideation Endocrine Denies palpitations Hematologic/Lymphatic Denies easy bruising Allergic/Immunologic Denies urticaria, Denies throat swelling and Denies wheezing PFSH <NICHOLAS Smith - Last Filed: 09/30/18 21:54> Medical History Hypertension (Acute) Hypothyroidism (Acute) Surgical History H/O hysterectomy for benign disease (Acute) History of tonsillectomy (Acute) Family History Mother Cerebral aneurysm Social History household members: spouse Smoking Status: Former smoker alcohol intake: never Family History Mother Cerebral aneurysm Social History household members: spouse Smoking Status: Former smoker alcohol intake: never Exam <NICHOLAS Smith - Last Filed: 09/30/18 21:54> Initial Vital Signs Initial Vital Signs: Vital Signs Pulse Rate 96 H 09/30/18 14:12 Respiratory Rate 20 09/30/18 14:12 Blood Pressure 151/91 H 09/30/18 14:12 Pulse Oximetry 88 L 09/30/18 14:12 Const General: cooperative and well developed Nutritional Appearance: well nourished Orientation: alert, awake, oriented x3 and not confused [facility] Face and sinus: no sinus tenderness Mouth: oral mucosae normal and moist mucous membranes Throat: posterior oropharynx normal Eyes Conjunctivae: conjunctivae normal Sclera: sclerae normal Pupils: PERRL EOM: EOM intact bilaterally Resp Effort & Inspection: normal respiratory effort, able to speak in complete sentences, no respiratory distress and no use of accessory muscles Auscultation: clear to auscultation bilaterally, no rales, no rhonchi and no wheezes Cardio Rate: regular rate Rhythm: regular rhythm Heart Sounds: no click, no gallops, no murmurs and no rubs Pulses: normal peripheral pulses Skin General: no rashes or lesions noted, No jaundice and No petechiae Neuro General: alert, oriented x3, gait normal and no focal motor deficits Speech: speech normal <Jose Antonio Pino DO - Last Filed: 10/01/18 18:24> Initial Vital Signs Initial Vital Signs: Vital Signs Pulse Rate 96 H 09/30/18 14:12 Respiratory Rate 20 09/30/18 14:12 Blood Pressure 151/91 H 09/30/18 14:12 Pulse Oximetry 88 L 09/30/18 14:12 Course <NICHOLAS Smith - Last Filed: 09/30/18 21:54> Orders Ordered: Acetaminophen (Tylenol) 650 mg PO Q6HR PRN PRN Reason: As Needed for Fever/Mild Pain Last Admin: 09/30/18 19:42 Dose: 650 mg Hydrocodone Bitart/Acetaminophen ([place] 5/325) 1 tab PO Q4HR PRN PRN Reason: Pain, Moderate (4-6) Albuterol (Ventolin) 2.5 mg INH [id number] [facility] Last Admin: 10/01/18 13:18 Dose: 2.5 mg Admin: 10/01/18 09:11 Dose: 2.5 mg Admin: 10/01/18 05:00 Dose: 2.5 mg Admin: 09/30/18 23:46 Dose: Not Given Admin: 09/30/18 23:45 Dose: Not Given Bisacodyl (Dulcolax) 10 mg PO DAILY PRN PRN Reason: Constipation Last Admin: 09/30/18 21:11 Dose: 10 mg Enoxaparin Sodium (Lovenox) 40 mg SUBCUT DAILY [facility] Last Admin: 10/01/18 08:29 Dose: 40 mg Dextrose/Sodium Chloride (Dextrose 5%-0.9% Ns) 1,000 mls @ 100 mls/hr IV CONT [facility] Last Admin: 10/01/18 16:32 Dose: 100 mls/hr Infusion: 10/01/18 14:31 Dose: 100 mls/hr Admin: 10/01/18 04:31 Dose: 100 mls/hr Infusion: 10/01/18 04:31 Dose: 100 mls/hr Admin: 09/30/18 19:43 Dose: 100 mls/hr Ibuprofen (Advil) 600 mg PO Q6H PRN PRN Reason: As Needed for Fever/Mild Pain Levothyroxine Sodium (Synthroid) 50 mcg PO 0600 [facility] Last Admin: 10/01/18 07:01 Dose: 50 mcg Metoprolol Succinate (Toprol Xl) 25 mg PO DAILY [facility] Last Admin: 10/01/18 08:29 Dose: 25 mg Mirtazapine (Remeron) 30 mg PO BEDTIME [facility] Last Admin: 09/30/18 21:11 Dose: 30 mg Ondansetron HCl (Zofran) 4 mg IV Q8HR PRN PRN Reason: Nausea And Vomiting Oseltamivir Phosphate (Tamiflu) 75 mg PO BID [facility] Last Admin: 10/01/18 08:29 Dose: 75 mg Discontinued Medications Albuterol/Ipratropium (Duoneb) 3 ml INH NOW ONE Stop: 09/30/18 14:51 Last Admin: 09/30/18 15:31 Dose: 3 ml Sodium Chloride (Normal Saline 0.9%) 1,000 mls @ 1,000 mls/hr IV BOLUS ONE Stop: 09/30/18 15:49 Last Infusion: 09/30/18 16:44 Dose: 0 mls/hr Admin: 09/30/18 15:12 Dose: 1,000 mls/hr Oseltamivir Phosphate (Tamiflu) 75 mg PO NOW ONE Stop: 09/30/18 16:21 Last Admin: 09/30/18 16:37 Dose: 75 mg Vital Signs - 8 hr 10/01/18 11:30 10/01/18 13:27 10/01/18 15:30 Temperature 96.7 F L Pulse Rate 80 71 Respiratory Rate 18 18 Blood Pressure 130/89 Pulse Oximetry 93 93 90 L 10/01/18 15:35 10/01/18 15:43 10/01/18 16:59 Temperature 98.0 F Pulse Rate 78 Respiratory Rate 20 Blood Pressure 116/56 L Pulse Oximetry 96 94 94 <Jose Antonio Pino DO - Last Filed: 10/01/18 18:24> Orders Ordered: Acetaminophen (Tylenol) 650 mg PO Q6HR PRN PRN Reason: As Needed for Fever/Mild Pain Last Admin: 09/30/18 19:42 Dose: 650 mg Hydrocodone Bitart/Acetaminophen ([place] 5/325) 1 tab PO Q4HR PRN PRN Reason: Pain, Moderate (4-6) Albuterol (Ventolin) 2.5 mg INH [id number] [facility] Last Admin: 10/01/18 13:18 Dose: 2.5 mg Admin: 10/01/18 09:11 Dose: 2.5 mg Admin: 10/01/18 05:00 Dose: 2.5 mg Admin: 09/30/18 23:46 Dose: Not Given Admin: 09/30/18 23:45 Dose: Not Given Bisacodyl (Dulcolax) 10 mg PO DAILY PRN PRN Reason: Constipation Last Admin: 09/30/18 21:11 Dose: 10 mg Enoxaparin Sodium (Lovenox) 40 mg SUBCUT DAILY [facility] Last Admin: 10/01/18 08:29 Dose: 40 mg Dextrose/Sodium Chloride (Dextrose 5%-0.9% Ns) 1,000 mls @ 100 mls/hr IV CONT [facility] Last Admin: 10/01/18 16:32 Dose: 100 mls/hr Infusion: 10/01/18 14:31 Dose: 100 mls/hr Admin: 10/01/18 04:31 Dose: 100 mls/hr Infusion: 10/01/18 04:31 Dose: 100 mls/hr Admin: 09/30/18 19:43 Dose: 100 mls/hr Ibuprofen (Advil) 600 mg PO Q6H PRN PRN Reason: As Needed for Fever/Mild Pain Levothyroxine Sodium (Synthroid) 50 mcg PO 0600 [facility] Last Admin: 10/01/18 07:01 Dose: 50 mcg Metoprolol Succinate (Toprol Xl) 25 mg PO DAILY [facility] Last Admin: 10/01/18 08:29 Dose: 25 mg Mirtazapine (Remeron) 30 mg PO BEDTIME [facility] Last Admin: 09/30/18 21:11 Dose: 30 mg Ondansetron HCl (Zofran) 4 mg IV Q8HR PRN PRN Reason: Nausea And Vomiting Oseltamivir Phosphate (Tamiflu) 75 mg PO BID [facility] Last Admin: 10/01/18 08:29 Dose: 75 mg Discontinued Medications Albuterol/Ipratropium (Duoneb) 3 ml INH NOW ONE Stop: 09/30/18 14:51 Last Admin: 09/30/18 15:31 Dose: 3 ml Sodium Chloride (Normal Saline 0.9%) 1,000 mls @ 1,000 mls/hr IV BOLUS ONE Stop: 09/30/18 15:49 Last Infusion: 09/30/18 16:44 Dose: 0 mls/hr Admin: 09/30/18 15:12 Dose: 1,000 mls/hr Oseltamivir Phosphate (Tamiflu) 75 mg PO NOW ONE Stop: 09/30/18 16:21 Last Admin: 09/30/18 16:37 Dose: 75 mg Vital Signs - 8 hr 10/01/18 11:30 10/01/18 13:27 10/01/18 15:30 Temperature 96.7 F L Pulse Rate 80 71 Respiratory Rate 18 18 Blood Pressure 130/89 Pulse Oximetry 93 93 90 L 10/01/18 15:35 10/01/18 15:43 10/01/18 16:59 Temperature 98.0 F Pulse Rate 78 Respiratory Rate 20 Blood Pressure 116/56 L Pulse Oximetry 96 94 94 MDM - URI/Sore Throat <NICHOLAS Smith - Last Filed: 09/30/18 21:54> Lab Data Result diagrams: 10/01/18 05:07 10/01/18 05:07 Lab Results 09/30/18 09/30/18 09/30/18 Range/Units 14:42 14:43 14:43 WBC 6.9 (4.5-11.0) X10^3/uL RBC 5.19 (4.0-5.2) X10^6/uL Hgb 16.3 H (12.0-16.0) g/dL Hct 48.7 H (36-46) % MCV 93.9 (80-100) fL MCH 31.4 (26-34) PG MCHC 33.5 (30-36) % RDW 14.5 (11.6-14.8) % Plt Count 176 (150-400) X10^3/uL Neut % (Auto) 59.9 (50-75) % Lymph % (Auto) 23.8 L (25-40) % [place] % (Auto) 15.2 H (3-14) % Eos % (Auto) 0.4 L (2-4) % Baso % (Auto) 0.7 (0-2) % Neut # (Auto) 4100 (4393-3064) /uL Lymph # (Auto) 1600 (0237-9335) /uL [place] # (Auto) 1000 H (0-900) /uL Eos # (Auto) 0 (0-450) /uL Baso # (Auto) 100 (0-100) /uL D-Dimer (<230) ng/mL Sodium (137-145) mmol/L Potassium (3.4-5.1) mmol/L Chloride (98-107) mmol/L Carbon Dioxide (22-32) mmol/L BUN (7-17) mg/dL Creatinine (0.52-1.04) mg/dL Estimated GFR (>60) mL/min BUN/Creatinine Ratio (6-22) Glucose (80-110) mg/dL Lactate (0.7-2.1) mmol/L Calcium (8.4-10.2) mg/dL Total Bilirubin (0.2-1.3) mg/dL AST (14-36) IU/L ALT (9-52) IU/L Alkaline Phosphatase (38-126) U/L Total Creatine Kinase (30-135) U/L CK-MB (CK-2) (<2.37) ng/mL CK-MB (CK-2) Rel Index (1.5-5.0) % Troponin I (0.01-0.034) ng/mL B-Natriuretic Peptide < 100 (<100) Total Protein (6.3-8.2) g/dL Albumin (3.5-5.0) g/dL Globulin (1.7-4.1) g/dL Albumin/Globulin Ratio (1.0-2.8) Procalcitonin (<0.5) ng/mL Urine Color Yellow Urine Appearance Cloudy Urine pH 6.0 (4.5-8.0) Ur Specific [place] 1.020 (1.000-1.035) Urine Protein 2+ H (Negative) Urine Glucose (UA) Negative (Negative) g/dL Urine Ketones Trace H (NEGATIVE) Urine Occult Blood Negative (Negative) Urine Nitrate Negative (Negative) Urine Bilirubin 1+ H (NEGATIVE) Urine Ictotest Negative (Negative) Urine Urobilinogen 0.2 (0.2) E.U./dL Ur Leukocyte Esterase Negative (NEGATIVE) Urine RBC None seen (0-5/HPF) Urine WBC 0-1/hpf (0-5/HPF) Ur Squamous Epith Cells 1-5 /hpf Amorphous Sediment 2+ Urine Bacteria Few (2-10) H (None) Ur Culture Indicated? Cult not indicated Chlamy pneumoniae PCR (Not Detect) Adenovirus (PCR) (Not Detect) B.parapertussis DNA PCR (Not Detect) Coronavirus OC43 (PCR) (Not Detect) Coronavirus HKU1 (PCR) (Not Detect) Coronavirus 229E (PCR) (Not Detect) Coronavirus NL63 (PCR) (Not Detect) Human Metapneumovir PCR (Not Detect) Influenza Type A (PCR) (Not Detect) Influenza Type B (PCR) (Not Detect) Influenza A & B (PCR) Positive, type a A (Negative) M. pneumoniae (PCR) (Not Detect) Parainfluenza 1 (PCR) (Not Detect) Parainfluenza 2 (PCR) (Not Detect) Parainfluenza 3 (PCR) (Not Detect) Parainfluenza 4 (PCR) (Not Detect) RSV (PCR) (Not Detect) Entero/Rhino (PCR) (Not Detect) 09/30/18 09/30/18 09/30/18 Range/Units 14:43 15:00 15:00 WBC (4.5-11.0) X10^3/uL RBC (4.0-5.2) X10^6/uL Hgb (12.0-16.0) g/dL Hct (36-46) % MCV (80-100) fL MCH (26-34) PG MCHC (30-36) % RDW (11.6-14.8) % Plt Count (150-400) X10^3/uL Neut % (Auto) (50-75) % Lymph % (Auto) (25-40) % [place] % (Auto) (3-14) % Eos % (Auto) (2-4) % Baso % (Auto) (0-2) % Neut # (Auto) (8387-2489) /uL Lymph # (Auto) (8165-1215) /uL [place] # (Auto) (0-900) /uL Eos # (Auto) (0-450) /uL Baso # (Auto) (0-100) /uL D-Dimer < 200 (<230) ng/mL Sodium (137-145) mmol/L Potassium (3.4-5.1) mmol/L Chloride (98-107) mmol/L Carbon Dioxide (22-32) mmol/L BUN (7-17) mg/dL Creatinine (0.52-1.04) mg/dL Estimated GFR (>60) mL/min BUN/Creatinine Ratio (6-22) Glucose (80-110) mg/dL Lactate 1.5 (0.7-2.1) mmol/L Calcium (8.4-10.2) mg/dL Total Bilirubin (0.2-1.3) mg/dL AST (14-36) IU/L ALT (9-52) IU/L Alkaline Phosphatase (38-126) U/L Total Creatine Kinase (30-135) U/L CK-MB (CK-2) (<2.37) ng/mL CK-MB (CK-2) Rel Index (1.5-5.0) % Troponin I (0.01-0.034) ng/mL B-Natriuretic Peptide (<100) Total Protein (6.3-8.2) g/dL Albumin (3.5-5.0) g/dL Globulin (1.7-4.1) g/dL Albumin/Globulin Ratio (1.0-2.8) Procalcitonin < 0.05 (<0.5) ng/mL Urine Color Urine Appearance Urine pH (4.5-8.0) Ur Specific [place] (1.000-1.035) Urine Protein (Negative) Urine Glucose (UA) (Negative) g/dL Urine Ketones (NEGATIVE) Urine Occult Blood (Negative) Urine Nitrate (Negative) Urine Bilirubin (NEGATIVE) Urine Ictotest (Negative) Urine Urobilinogen (0.2) E.U./dL Ur Leukocyte Esterase (NEGATIVE) Urine RBC (0-5/HPF) Urine WBC (0-5/HPF) Ur Squamous Epith Cells Amorphous Sediment Urine Bacteria (None) Ur Culture Indicated? Chlamy pneumoniae PCR (Not Detect) Adenovirus (PCR) (Not Detect) B.parapertussis DNA PCR (Not Detect) Coronavirus OC43 (PCR) (Not Detect) Coronavirus HKU1 (PCR) (Not Detect) Coronavirus 229E (PCR) (Not Detect) Coronavirus NL63 (PCR) (Not Detect) Human Metapneumovir PCR (Not Detect) Influenza Type A (PCR) (Not Detect) Influenza Type B (PCR) (Not Detect) Influenza A & B (PCR) (Negative) M. pneumoniae (PCR) (Not Detect) Parainfluenza 1 (PCR) (Not Detect) Parainfluenza 2 (PCR) (Not Detect) Parainfluenza 3 (PCR) (Not Detect) Parainfluenza 4 (PCR) (Not Detect) RSV (PCR) (Not Detect) Entero/Rhino (PCR) (Not Detect) 09/30/18 09/30/18 10/01/18 Range/Units 15:19 22:05 05:07 WBC 5.1 (4.5-11.0) X10^3/uL RBC 4.58 (4.0-5.2) X10^6/uL Hgb 14.2 (12.0-16.0) g/dL Hct 42.8 (36-46) % MCV 93.5 (80-100) fL MCH 31.0 (26-34) PG MCHC 33.1 (30-36) % RDW 14.4 (11.6-14.8) % Plt Count 154 (150-400) X10^3/uL Neut % (Auto) 50.4 (50-75) % Lymph % (Auto) 32.4 (25-40) % [place] % (Auto) 15.1 H (3-14) % Eos % (Auto) 1.1 L (2-4) % Baso % (Auto) 1.0 (0-2) % Neut # (Auto) 2600 (9719-4677) /uL Lymph # (Auto) 1700 (9325-0067) /uL [place] # (Auto) 800 (0-900) /uL Eos # (Auto) 100 (0-450) /uL Baso # (Auto) 100 (0-100) /uL D-Dimer (<230) ng/mL Sodium 139 (137-145) mmol/L Potassium 3.7 (3.4-5.1) mmol/L Chloride 97 L (98-107) mmol/L Carbon Dioxide 29 (22-32) mmol/L BUN 30 H (7-17) mg/dL Creatinine 0.70 (0.52-1.04) mg/dL Estimated GFR > 60.0 (>60) mL/min BUN/Creatinine Ratio 42.9 H (6-22) Glucose 111 H (80-110) mg/dL Lactate (0.7-2.1) mmol/L Calcium 9.4 (8.4-10.2) mg/dL Total Bilirubin 0.6 (0.2-1.3) mg/dL AST 43 H (14-36) IU/L ALT 48 (9-52) IU/L Alkaline Phosphatase 76 (38-126) U/L Total Creatine Kinase 132 (30-135) U/L CK-MB (CK-2) 1.29 (<2.37) ng/mL CK-MB (CK-2) Rel Index 1.0 L (1.5-5.0) % Troponin I < 0.012 (0.01-0.034) ng/mL B-Natriuretic Peptide < 100 (<100) Total Protein 8.2 (6.3-8.2) g/dL Albumin 4.5 (3.5-5.0) g/dL Globulin 3.7 (1.7-4.1) g/dL Albumin/Globulin Ratio 1.2 (1.0-2.8) Procalcitonin (<0.5) ng/mL Urine Color Urine Appearance Urine pH (4.5-8.0) Ur Specific [place] (1.000-1.035) Urine Protein (Negative) Urine Glucose (UA) (Negative) g/dL Urine Ketones (NEGATIVE) Urine Occult Blood (Negative) Urine Nitrate (Negative) Urine Bilirubin (NEGATIVE) Urine Ictotest (Negative) Urine Urobilinogen (0.2) E.U./dL Ur Leukocyte Esterase (NEGATIVE) Urine RBC (0-5/HPF) Urine WBC (0-5/HPF) Ur Squamous Epith Cells Amorphous Sediment Urine Bacteria (None) Ur Culture Indicated? Chlamy pneumoniae PCR Not detected (Not Detect) Adenovirus (PCR) Not detected (Not Detect) B.parapertussis DNA PCR Not detected (Not Detect) Coronavirus OC43 (PCR) Not detected (Not Detect) Coronavirus HKU1 (PCR) Not detected (Not Detect) Coronavirus 229E (PCR) Not detected (Not Detect) Coronavirus NL63 (PCR) Not detected (Not Detect) Human Metapneumovir PCR Not detected (Not Detect) Influenza Type A (PCR) Detected H (Not Detect) Influenza Type B (PCR) Not detected (Not Detect) Influenza A & B (PCR) (Negative) M. pneumoniae (PCR) Not detected (Not Detect) Parainfluenza 1 (PCR) Not detected (Not Detect) Parainfluenza 2 (PCR) Not detected (Not Detect) Parainfluenza 3 (PCR) Not detected (Not Detect) Parainfluenza 4 (PCR) Not detected (Not Detect) RSV (PCR) Not detected (Not Detect) Entero/Rhino (PCR) Not detected (Not Detect) 10/01/18 Range/Units 05:07 WBC (4.5-11.0) X10^3/uL RBC (4.0-5.2) X10^6/uL Hgb (12.0-16.0) g/dL Hct (36-46) % MCV (80-100) fL MCH (26-34) PG MCHC (30-36) % RDW (11.6-14.8) % Plt Count (150-400) X10^3/uL Neut % (Auto) (50-75) % Lymph % (Auto) (25-40) % [place] % (Auto) (3-14) % Eos % (Auto) (2-4) % Baso % (Auto) (0-2) % Neut # (Auto) (8324-0424) /uL Lymph # (Auto) (5928-2878) /uL [place] # (Auto) (0-900) /uL Eos # (Auto) (0-450) /uL Baso # (Auto) (0-100) /uL D-Dimer (<230) ng/mL Sodium 142 (137-145) mmol/L Potassium 3.4 (3.4-5.1) mmol/L Chloride 101 (98-107) mmol/L Carbon Dioxide 33 H (22-32) mmol/L BUN 19 H (7-17) mg/dL Creatinine 0.70 (0.52-1.04) mg/dL Estimated GFR > 60.0 (>60) mL/min BUN/Creatinine Ratio 27.1 H (6-22) Glucose 112 H (80-110) mg/dL Lactate (0.7-2.1) mmol/L Calcium 8.6 (8.4-10.2) mg/dL Total Bilirubin 0.4 (0.2-1.3) mg/dL AST 40 H (14-36) IU/L ALT 44 (9-52) IU/L Alkaline Phosphatase 64 (38-126) U/L Total Creatine Kinase (30-135) U/L CK-MB (CK-2) (<2.37) ng/mL CK-MB (CK-2) Rel Index (1.5-5.0) % Troponin I (0.01-0.034) ng/mL B-Natriuretic Peptide (<100) Total Protein 7.0 (6.3-8.2) g/dL Albumin 3.8 (3.5-5.0) g/dL Globulin 3.2 (1.7-4.1) g/dL Albumin/Globulin Ratio 1.2 (1.0-2.8) Procalcitonin (<0.5) ng/mL Urine Color Urine Appearance Urine pH (4.5-8.0) Ur Specific [place] (1.000-1.035) Urine Protein (Negative) Urine Glucose (UA) (Negative) g/dL Urine Ketones (NEGATIVE) Urine Occult Blood (Negative) Urine Nitrate (Negative) Urine Bilirubin (NEGATIVE) Urine Ictotest (Negative) Urine Urobilinogen (0.2) E.U./dL Ur Leukocyte Esterase (NEGATIVE) Urine RBC (0-5/HPF) Urine WBC (0-5/HPF) Ur Squamous Epith Cells Amorphous Sediment Urine Bacteria (None) Ur Culture Indicated? Chlamy pneumoniae PCR (Not Detect) Adenovirus (PCR) (Not Detect) B.parapertussis DNA PCR (Not Detect) Coronavirus OC43 (PCR) (Not Detect) Coronavirus HKU1 (PCR) (Not Detect) Coronavirus 229E (PCR) (Not Detect) Coronavirus NL63 (PCR) (Not Detect) Human Metapneumovir PCR (Not Detect) Influenza Type A (PCR) (Not Detect) Influenza Type B (PCR) (Not Detect) Influenza A & B (PCR) (Negative) M. pneumoniae (PCR) (Not Detect) Parainfluenza 1 (PCR) (Not Detect) Parainfluenza 2 (PCR) (Not Detect) Parainfluenza 3 (PCR) (Not Detect) Parainfluenza 4 (PCR) (Not Detect) RSV (PCR) (Not Detect) Entero/Rhino (PCR) (Not Detect) Imaging Data Chest x-ray: Radiologist's impression: [address] [address] XRay Report Signed Patient: Zuleima Mendoza [facility]#: [id number] : 8Acct:[id number] Age/Sex: 72 / FDate of Service: 09/30/18 Loc: ED Accession Number: [id number] Procedure: XR chest 1V Ordering Provider: Yovani Le PROCEDURE: XR CHEST 1V INDICATIONS: Cough fever shortness of breath TECHNIQUE: One view of the chest was acquired. COMPARISON: None. FINDINGS: Surgical changes and devices: None. Lungs and pleura: Lungs are abnormal with a generalized pulmonary edema pattern. No pleural effusions or pneumothorax. Mediastinum: Mediastinal contours appear normal. Heart size is at the upper limits of normal. Bones and chest wall: No suspicious bony lesions. Overlying soft tissues appear unremarkable. IMPRESSION: Mild pulmonary edema pattern, heart size at the upper limits of normal. A focal pneumonia is not found. Dictated by: Ben Roman M.D. on 09/30/2018 at 15:12 Approved by: Ben Roman M.D. on 09/30/2018 at 15:13 ECG Data Interpretation: EKG shows sinus rhythm with no ST elevation or depression. Ventricular rate of 94. Pr interval of 156. QRS duration of 95. QTC of 402. MDM Narrative Medical decision making narrative: CBC was obtained and was negative for elevated white count and otherwise unremarkable. chemistry panel was obtained was also unremarkable. Cardiac enzymes were obtained and were negative. A procalcitonin was negative. BNP was normal. Lactate was normal. Urinalysis was negative for urinary tract infection. Chest x-ray was obtained and read as generalized pulmonary edema pattern no signs of pneumonia. Influenza swab was obtained was positive. She was given a DuoNeb treatment in the emergency room which seemed to help her symptoms make her feel better however she still was not able to maintain O2 saturations on room air and would drop into the mid to high 80s. She was started on Tamiflu a in the emergency room. Due to a decreased oxygen saturation she is admitted to the hospital for supportive care. Discussed case with Dr. Munson who accepted patient. <Jose Antonio Pino, DO - Last Filed: 10/01/18 18:24> Lab Data Lab Results 09/30/18 09/30/18 09/30/18 Range/Units 14:42 14:43 14:43 WBC 6.9 (4.5-11.0) X10^3/uL RBC 5.19 (4.0-5.2) X10^6/uL Hgb 16.3 H (12.0-16.0) g/dL Hct 48.7 H (36-46) % MCV 93.9 (80-100) fL MCH 31.4 (26-34) PG MCHC 33.5 (30-36) % RDW 14.5 (11.6-14.8) % Plt Count 176 (150-400) X10^3/uL Neut % (Auto) 59.9 (50-75) % Lymph % (Auto) 23.8 L (25-40) % [place] % (Auto) 15.2 H (3-14) % Eos % (Auto) 0.4 L (2-4) % Baso % (Auto) 0.7 (0-2) % Neut # (Auto) 4100 (9513-6454) /uL Lymph # (Auto) 1600 (6784-5085) /uL [place] # (Auto) 1000 H (0-900) /uL Eos # (Auto) 0 (0-450) /uL Baso # (Auto) 100 (0-100) /uL D-Dimer (<230) ng/mL Sodium (137-145) mmol/L Potassium (3.4-5.1) mmol/L Chloride (98-107) mmol/L Carbon Dioxide (22-32) mmol/L BUN (7-17) mg/dL Creatinine (0.52-1.04) mg/dL Estimated GFR (>60) mL/min BUN/Creatinine Ratio (6-22) Glucose (80-110) mg/dL Lactate (0.7-2.1) mmol/L Calcium (8.4-10.2) mg/dL Total Bilirubin (0.2-1.3) mg/dL AST (14-36) IU/L ALT (9-52) IU/L Alkaline Phosphatase (38-126) U/L Total Creatine Kinase (30-135) U/L CK-MB (CK-2) (<2.37) ng/mL CK-MB (CK-2) Rel Index (1.5-5.0) % Troponin I (0.01-0.034) ng/mL B-Natriuretic Peptide < 100 (<100) Total Protein (6.3-8.2) g/dL Albumin (3.5-5.0) g/dL Globulin (1.7-4.1) g/dL Albumin/Globulin Ratio (1.0-2.8) Procalcitonin (<0.5) ng/mL Urine Color Yellow Urine Appearance Cloudy Urine pH 6.0 (4.5-8.0) Ur Specific [place] 1.020 (1.000-1.035) Urine Protein 2+ H (Negative) Urine Glucose (UA) Negative (Negative) g/dL Urine Ketones Trace H (NEGATIVE) Urine Occult Blood Negative (Negative) Urine Nitrate Negative (Negative) Urine Bilirubin 1+ H (NEGATIVE) Urine Ictotest Negative (Negative) Urine Urobilinogen 0.2 (0.2) E.U./dL Ur Leukocyte Esterase Negative (NEGATIVE) Urine RBC None seen (0-5/HPF) Urine WBC 0-1/hpf (0-5/HPF) Ur Squamous Epith Cells 1-5 /hpf Amorphous Sediment 2+ Urine Bacteria Few (2-10) H (None) Ur Culture Indicated? Cult not indicated Chlamy pneumoniae PCR (Not Detect) Adenovirus (PCR) (Not Detect) B.parapertussis DNA PCR (Not Detect) Coronavirus OC43 (PCR) (Not Detect) Coronavirus HKU1 (PCR) (Not Detect) Coronavirus 229E (PCR) (Not Detect) Coronavirus NL63 (PCR) (Not Detect) Human Metapneumovir PCR (Not Detect) Influenza Type A (PCR) (Not Detect) Influenza Type B (PCR) (Not Detect) Influenza A & B (PCR) Positive, type a A (Negative) M. pneumoniae (PCR) (Not Detect) Parainfluenza 1 (PCR) (Not Detect) Parainfluenza 2 (PCR) (Not Detect) Parainfluenza 3 (PCR) (Not Detect) Parainfluenza 4 (PCR) (Not Detect) RSV (PCR) (Not Detect) Entero/Rhino (PCR) (Not Detect) 09/30/18 09/30/18 09/30/18 Range/Units 14:43 15:00 15:00 WBC (4.5-11.0) X10^3/uL RBC (4.0-5.2) X10^6/uL Hgb (12.0-16.0) g/dL Hct (36-46) % MCV (80-100) fL MCH (26-34) PG MCHC (30-36) % RDW (11.6-14.8) % Plt Count (150-400) X10^3/uL Neut % (Auto) (50-75) % Lymph % (Auto) (25-40) % [place] % (Auto) (3-14) % Eos % (Auto) (2-4) % Baso % (Auto) (0-2) % Neut # (Auto) (9430-7572) /uL Lymph # (Auto) (2650-3368) /uL [place] # (Auto) (0-900) /uL Eos # (Auto) (0-450) /uL Baso # (Auto) (0-100) /uL D-Dimer < 200 (<230) ng/mL Sodium (137-145) mmol/L Potassium (3.4-5.1) mmol/L Chloride (98-107) mmol/L Carbon Dioxide (22-32) mmol/L BUN (7-17) mg/dL Creatinine (0.52-1.04) mg/dL Estimated GFR (>60) mL/min BUN/Creatinine Ratio (6-22) Glucose (80-110) mg/dL Lactate 1.5 (0.7-2.1) mmol/L Calcium (8.4-10.2) mg/dL Total Bilirubin (0.2-1.3) mg/dL AST (14-36) IU/L ALT (9-52) IU/L Alkaline Phosphatase (38-126) U/L Total Creatine Kinase (30-135) U/L CK-MB (CK-2) (<2.37) ng/mL CK-MB (CK-2) Rel Index (1.5-5.0) % Troponin I (0.01-0.034) ng/mL B-Natriuretic Peptide (<100) Total Protein (6.3-8.2) g/dL Albumin (3.5-5.0) g/dL Globulin (1.7-4.1) g/dL Albumin/Globulin Ratio (1.0-2.8) Procalcitonin < 0.05 (<0.5) ng/mL Urine Color Urine Appearance Urine pH (4.5-8.0) Ur Specific [place] (1.000-1.035) Urine Protein (Negative) Urine Glucose (UA) (Negative) g/dL Urine Ketones (NEGATIVE) Urine Occult Blood (Negative) Urine Nitrate (Negative) Urine Bilirubin (NEGATIVE) Urine Ictotest (Negative) Urine Urobilinogen (0.2) E.U./dL Ur Leukocyte Esterase (NEGATIVE) Urine RBC (0-5/HPF) Urine WBC (0-5/HPF) Ur Squamous Epith Cells Amorphous Sediment Urine Bacteria (None) Ur Culture Indicated? Chlamy pneumoniae PCR (Not Detect) Adenovirus (PCR) (Not Detect) B.parapertussis DNA PCR (Not Detect) Coronavirus OC43 (PCR) (Not Detect) Coronavirus HKU1 (PCR) (Not Detect) Coronavirus 229E (PCR) (Not Detect) Coronavirus NL63 (PCR) (Not Detect) Human Metapneumovir PCR (Not Detect) Influenza Type A (PCR) (Not Detect) Influenza Type B (PCR) (Not Detect) Influenza A & B (PCR) (Negative) M. pneumoniae (PCR) (Not Detect) Parainfluenza 1 (PCR) (Not Detect) Parainfluenza 2 (PCR) (Not Detect) Parainfluenza 3 (PCR) (Not Detect) Parainfluenza 4 (PCR) (Not Detect) RSV (PCR) (Not Detect) Entero/Rhino (PCR) (Not Detect) 09/30/18 09/30/18 10/01/18 Range/Units 15:19 22:05 05:07 WBC 5.1 (4.5-11.0) X10^3/uL RBC 4.58 (4.0-5.2) X10^6/uL Hgb 14.2 (12.0-16.0) g/dL Hct 42.8 (36-46) % MCV 93.5 (80-100) fL MCH 31.0 (26-34) PG MCHC 33.1 (30-36) % RDW 14.4 (11.6-14.8) % Plt Count 154 (150-400) X10^3/uL Neut % (Auto) 50.4 (50-75) % Lymph % (Auto) 32.4 (25-40) % [place] % (Auto) 15.1 H (3-14) % Eos % (Auto) 1.1 L (2-4) % Baso % (Auto) 1.0 (0-2) % Neut # (Auto) 2600 (4719-2931) /uL Lymph # (Auto) 1700 (7928-5986) /uL [place] # (Auto) 800 (0-900) /uL Eos # (Auto) 100 (0-450) /uL Baso # (Auto) 100 (0-100) /uL D-Dimer (<230) ng/mL Sodium 139 (137-145) mmol/L Potassium 3.7 (3.4-5.1) mmol/L Chloride 97 L (98-107) mmol/L Carbon Dioxide 29 (22-32) mmol/L BUN 30 H (7-17) mg/dL Creatinine 0.70 (0.52-1.04) mg/dL Estimated GFR > 60.0 (>60) mL/min BUN/Creatinine Ratio 42.9 H (6-22) Glucose 111 H (80-110) mg/dL Lactate (0.7-2.1) mmol/L Calcium 9.4 (8.4-10.2) mg/dL Total Bilirubin 0.6 (0.2-1.3) mg/dL AST 43 H (14-36) IU/L ALT 48 (9-52) IU/L Alkaline Phosphatase 76 (38-126) U/L Total Creatine Kinase 132 (30-135) U/L CK-MB (CK-2) 1.29 (<2.37) ng/mL CK-MB (CK-2) Rel Index 1.0 L (1.5-5.0) % Troponin I < 0.012 (0.01-0.034) ng/mL B-Natriuretic Peptide < 100 (<100) Total Protein 8.2 (6.3-8.2) g/dL Albumin 4.5 (3.5-5.0) g/dL Globulin 3.7 (1.7-4.1) g/dL Albumin/Globulin Ratio 1.2 (1.0-2.8) Procalcitonin (<0.5) ng/mL Urine Color Urine Appearance Urine pH (4.5-8.0) Ur Specific [place] (1.000-1.035) Urine Protein (Negative) Urine Glucose (UA) (Negative) g/dL Urine Ketones (NEGATIVE) Urine Occult Blood (Negative) Urine Nitrate (Negative) Urine Bilirubin (NEGATIVE) Urine Ictotest (Negative) Urine Urobilinogen (0.2) E.U./dL Ur Leukocyte Esterase (NEGATIVE) Urine RBC (0-5/HPF) Urine WBC (0-5/HPF) Ur Squamous Epith Cells Amorphous Sediment Urine Bacteria (None) Ur Culture Indicated? Chlamy pneumoniae PCR Not detected (Not Detect) Adenovirus (PCR) Not detected (Not Detect) B.parapertussis DNA PCR Not detected (Not Detect) Coronavirus OC43 (PCR) Not detected (Not Detect) Coronavirus HKU1 (PCR) Not detected (Not Detect) Coronavirus 229E (PCR) Not detected (Not Detect) Coronavirus NL63 (PCR) Not detected (Not Detect) Human Metapneumovir PCR Not detected (Not Detect) Influenza Type A (PCR) Detected H (Not Detect) Influenza Type B (PCR) Not detected (Not Detect) Influenza A & B (PCR) (Negative) M. pneumoniae (PCR) Not detected (Not Detect) Parainfluenza 1 (PCR) Not detected (Not Detect) Parainfluenza 2 (PCR) Not detected (Not Detect) Parainfluenza 3 (PCR) Not detected (Not Detect) Parainfluenza 4 (PCR) Not detected (Not Detect) RSV (PCR) Not detected (Not Detect) Entero/Rhino (PCR) Not detected (Not Detect) 10/01/18 Range/Units 05:07 WBC (4.5-11.0) X10^3/uL RBC (4.0-5.2) X10^6/uL Hgb (12.0-16.0) g/dL Hct (36-46) % MCV (80-100) fL MCH (26-34) PG MCHC (30-36) % RDW (11.6-14.8) % Plt Count (150-400) X10^3/uL Neut % (Auto) (50-75) % Lymph % (Auto) (25-40) % [place] % (Auto) (3-14) % Eos % (Auto) (2-4) % Baso % (Auto) (0-2) % Neut # (Auto) (6130-3802) /uL Lymph # (Auto) (7974-1294) /uL [place] # (Auto) (0-900) /uL Eos # (Auto) (0-450) /uL Baso # (Auto) (0-100) /uL D-Dimer (<230) ng/mL Sodium 142 (137-145) mmol/L Potassium 3.4 (3.4-5.1) mmol/L Chloride 101 (98-107) mmol/L Carbon Dioxide 33 H (22-32) mmol/L BUN 19 H (7-17) mg/dL Creatinine 0.70 (0.52-1.04) mg/dL Estimated GFR > 60.0 (>60) mL/min BUN/Creatinine Ratio 27.1 H (6-22) Glucose 112 H (80-110) mg/dL Lactate (0.7-2.1) mmol/L Calcium 8.6 (8.4-10.2) mg/dL Total Bilirubin 0.4 (0.2-1.3) mg/dL AST 40 H (14-36) IU/L ALT 44 (9-52) IU/L Alkaline Phosphatase 64 (38-126) U/L Total Creatine Kinase (30-135) U/L CK-MB (CK-2) (<2.37) ng/mL CK-MB (CK-2) Rel Index (1.5-5.0) % Troponin I (0.01-0.034) ng/mL B-Natriuretic Peptide (<100) Total Protein 7.0 (6.3-8.2) g/dL Albumin 3.8 (3.5-5.0) g/dL Globulin 3.2 (1.7-4.1) g/dL Albumin/Globulin Ratio 1.2 (1.0-2.8) Procalcitonin (<0.5) ng/mL Urine Color Urine Appearance Urine pH (4.5-8.0) Ur Specific [place] (1.000-1.035) Urine Protein (Negative) Urine Glucose (UA) (Negative) g/dL Urine Ketones (NEGATIVE) Urine Occult Blood (Negative) Urine Nitrate (Negative) Urine Bilirubin (NEGATIVE) Urine Ictotest (Negative) Urine Urobilinogen (0.2) E.U./dL Ur Leukocyte Esterase (NEGATIVE) Urine RBC (0-5/HPF) Urine WBC (0-5/HPF) Ur Squamous Epith Cells Amorphous Sediment Urine Bacteria (None) Ur Culture Indicated? Chlamy pneumoniae PCR (Not Detect) Adenovirus (PCR) (Not Detect) B.parapertussis DNA PCR (Not Detect) Coronavirus OC43 (PCR) (Not Detect) Coronavirus HKU1 (PCR) (Not Detect) Coronavirus 229E (PCR) (Not Detect) Coronavirus NL63 (PCR) (Not Detect) Human Metapneumovir PCR (Not Detect) Influenza Type A (PCR) (Not Detect) Influenza Type B (PCR) (Not Detect) Influenza A & B (PCR) (Negative) M. pneumoniae (PCR) (Not Detect) Parainfluenza 1 (PCR) (Not Detect) Parainfluenza 2 (PCR) (Not Detect) Parainfluenza 3 (PCR) (Not Detect) Parainfluenza 4 (PCR) (Not Detect) RSV (PCR) (Not Detect) Entero/Rhino (PCR) (Not Detect) Discharge Plan Departure Patient Disposition: Admitted As Inpatient Clinical Impression: Influenza, Acute dyspnea Discharge Date/Time: 09/30/18 17:00 Interventions: ED Discharge Assessment Last Done: 09/30/18 16:49 Admit Date/Time: 09/30/18 16:28 Admit Provider: Ju Munson <Jose Antonio Pino DO - Last Filed: 10/01/18 18:24> Cosign ED Attending Cosignature Attestation: I was immediately available in the department for consultation. Documentation has been reviewed. I agree with assessment and plan.
[2018-09-30 16:00] LABS: D Dimer < 200 ng/mL (<230)
[2018-09-30] MEDS: OSELTAMIVIR 75 MG CAPSULE PO (16:37)
--- NOTE | 2018-09-30 18:26 | PM.HP.1 ---
History of Present Illness Date Patient Seen: 09/30/18 Chief complaint: SOB Narrative: The patient is a 72-year-old female with a history of hypertension, hypothyroidism who was in her usual state of health until about 5 days ago. Patient states about that time she developed cough muscle aches headache fever and chills. She states her symptoms became progressively worse. She had more shortness of breath and wheezing. Her cough was productive with yellow phlegm. She reports having had a flu shot this year. She has been unable to sleep for the past few days. Patient reports having nausea vomiting and diarrhea yesterday. Because of her progressive symptoms she presented to the emergency room for evaluation. In the emergency department the patient was found to be influenza a positive. Given her oxygenation with an O2 sat of 80% on room air she was admitted for further evaluation. Plans were made for her to go home however the patient continued to desaturate in the emergency room. Patient History Medical History Hypertension (Acute) Hypothyroidism (Acute) Surgical History H/O hysterectomy for benign disease (Acute) History of tonsillectomy (Acute) Family History Mother Cerebral aneurysm Social History Smoking Status: Former smoker Family & Social History Family History Mother Cerebral aneurysm Tobacco & Substance use: Smoking Status Former smoker Substance Use Type does not use Meds Home Medications Medication Instructions Recorded Confirmed Type Stool Softener 1 dose PO PRN PRN 09/30/18 09/30/18 History Vitamins 1 dose PO DAILY 09/30/18 09/30/18 History hydrochlorothiazide 50 mg PO DAILY 09/30/18 09/30/18 History levothyroxine 50 mcg PO DAILY 09/30/18 09/30/18 History metoprolol succinate 25 mg PO DAILY 09/30/18 09/30/18 History mirtazapine 30 mg PO BEDTIME 09/30/18 09/30/18 History Allergies Allergy/AdvReac Type Severity Reaction Status Date / Time Penicillins Allergy Hives Verified 09/30/18 14:19 Review of Systems Review of Systems All systems reviewed & are unremarkable except as noted in HPI and below Exam Vital Signs (past 8 hours): - 09/30/18 14:12 09/30/18 15:00 09/30/18 15:30 Temperature Pulse Rate 96 H 83 83 Respiratory Rate 20 20 19 Blood Pressure 151/91 H Blood Pressure [Left Arm] 131/74 132/70 Pulse Oximetry 88 L 97 96 09/30/18 15:31 09/30/18 17:00 Temperature 98.5 F Pulse Rate 81 83 Respiratory Rate 18 20 Blood Pressure 130/67 Blood Pressure [Left Arm] Pulse Oximetry 96 94 Oxygen Delivery Method Nasal Cannula Oxygen Flow Rate 2 Narrative Exam Narrative: Pleasant female ill appearing short of breath and cough HEENT: Normocephalic atraumatic, extraocular muscles are intact, oropharynx is clear, neck is supple, no adenopathy Lungs: Decreased breath sounds with diffuse rhonchi bilaterally, end-expiratory wheezing Cardiac exam: Regular rate and rhythm normal S1 and S2 Abdomen: Soft nontender nondistended without appreciable hepatosplenomegaly Extremities: No edema Neuro exam: Cranial nerves 2-12 are intact, strength is symmetric and equal, sensation is grossly intact, reflexes are Extremities: No edema Psychiatric exam: The patient is awake alert oriented and appropriate. Answers questions appropriately. No hallucinations or delusions. Skin exam: No lesion Objective Labs Result Diagrams: 09/30/18 14:43 09/30/18 15:19 Labs: Laboratory Results - last 24 hr 09/30/18 09/30/18 09/30/18 14:42 14:43 14:43 WBC 6.9 RBC 5.19 Hgb 16.3 H Hct 48.7 H MCV 93.9 MCH 31.4 MCHC 33.5 RDW 14.5 Plt Count 176 Neut % (Auto) 59.9 Lymph % (Auto) 23.8 L [place] % (Auto) 15.2 H Eos % (Auto) 0.4 L Baso % (Auto) 0.7 Neut # (Auto) 4100 Lymph # (Auto) 1600 [place] # (Auto) 1000 H Eos # (Auto) 0 Baso # (Auto) 100 D-Dimer Sodium Potassium Chloride Carbon Dioxide BUN Creatinine Estimated GFR BUN/Creatinine Ratio Glucose Lactate Calcium Total Bilirubin AST ALT Alkaline Phosphatase Total Creatine Kinase CK-MB (CK-2) CK-MB (CK-2) Rel Index Troponin I B-Natriuretic Peptide < 100 Total Protein Albumin Globulin Albumin/Globulin Ratio Procalcitonin Urine Color Yellow Urine Appearance Cloudy Urine pH 6.0 Ur Specific [place] 1.020 Urine Protein 2+ H Urine Glucose (UA) Negative Urine Ketones Trace H Urine Occult Blood Negative Urine Nitrate Negative Urine Bilirubin 1+ H Urine Ictotest Negative Urine Urobilinogen 0.2 Ur Leukocyte Esterase Negative Urine RBC None seen Urine WBC 0-1/hpf Ur Squamous Epith Cells 1-5 /hpf Amorphous Sediment 2+ Urine Bacteria Few (2-10) H Ur Culture Indicated? Cult not indicated Influenza A & B (PCR) Positive, type a A 09/30/18 09/30/18 09/30/18 14:43 15:00 15:00 WBC RBC Hgb Hct MCV MCH MCHC RDW Plt Count Neut % (Auto) Lymph % (Auto) [place] % (Auto) Eos % (Auto) Baso % (Auto) Neut # (Auto) Lymph # (Auto) [place] # (Auto) Eos # (Auto) Baso # (Auto) D-Dimer < 200 Sodium Potassium Chloride Carbon Dioxide BUN Creatinine Estimated GFR BUN/Creatinine Ratio Glucose Lactate 1.5 Calcium Total Bilirubin AST ALT Alkaline Phosphatase Total Creatine Kinase CK-MB (CK-2) CK-MB (CK-2) Rel Index Troponin I B-Natriuretic Peptide Total Protein Albumin Globulin Albumin/Globulin Ratio Procalcitonin < 0.05 Urine Color Urine Appearance Urine pH Ur Specific [place] Urine Protein Urine Glucose (UA) Urine Ketones Urine Occult Blood Urine Nitrate Urine Bilirubin Urine Ictotest Urine Urobilinogen Ur Leukocyte Esterase Urine RBC Urine WBC Ur Squamous Epith Cells Amorphous Sediment Urine Bacteria Ur Culture Indicated? Influenza A & B (PCR) 09/30/18 15:19 WBC RBC Hgb Hct MCV MCH MCHC RDW Plt Count Neut % (Auto) Lymph % (Auto) [place] % (Auto) Eos % (Auto) Baso % (Auto) Neut # (Auto) Lymph # (Auto) [place] # (Auto) Eos # (Auto) Baso # (Auto) D-Dimer Sodium 139 Potassium 3.7 Chloride 97 L Carbon Dioxide 29 BUN 30 H Creatinine 0.70 Estimated GFR > 60.0 BUN/Creatinine Ratio 42.9 H Glucose 111 H Lactate Calcium 9.4 Total Bilirubin 0.6 AST 43 H ALT 48 Alkaline Phosphatase 76 Total Creatine Kinase 132 CK-MB (CK-2) 1.29 CK-MB (CK-2) Rel Index 1.0 L Troponin I < 0.012 B-Natriuretic Peptide Total Protein 8.2 Albumin 4.5 Globulin 3.7 Albumin/Globulin Ratio 1.2 Procalcitonin Urine Color Urine Appearance Urine pH Ur Specific [place] Urine Protein Urine Glucose (UA) Urine Ketones Urine Occult Blood Urine Nitrate Urine Bilirubin Urine Ictotest Urine Urobilinogen Ur Leukocyte Esterase Urine RBC Urine WBC Ur Squamous Epith Cells Amorphous Sediment Urine Bacteria Ur Culture Indicated? Influenza A & B (PCR) Assessment & Plan Assessment Narrative: 72-year-old female admitted to the hospital with acute hypoxic respiratory failure secondary to influenza a, present on admission Hypothyroidism, chronic Hypertension, chronic Plan Narrative: Patient will be placed on Tamiflu. IV hydration will be started. Patient will receive oxygen, and nebulizer treatments. She has been placed on DVT prophylaxis will continue her usual medications as well. Patient is a full code and will note that her record accordingly.
[2018-09-30] MEDS: ACETAMINOPHEN 325 MG TABLET 650 MG PO (19:42)
[2018-09-30] MEDS: DEXTROSE 5%-0.9% NS 1,000 ML 100 ML IV (19:43)
[2018-09-30] MEDS: BISACODYL 5 MG TABLET 10 MG PO (21:11)
[2018-09-30] MEDS: MIRTAZAPINE 15 MG TABLET 30 MG PO (21:11)
--- NOTE | 2018-09-30 21:36 | PC.NURSE ---
Admission/Evening Shift Note- Patient arrived to room via stretcher from ER. Patient walked on her own from stretcher to bed with no noted issues. admission questions completed, home medications reviewed, and physical assessment done. Oriented patient to bed and bed controls, room, bathroom, lights, phone, menu, and call rod/TV remote. Patient agrees to call for assistance if needed. safety measures in place. call rod and phone within reach. will continue to monitor.
[2018-09-30 23:56] LABS: Adenovirus Not Detected (Not Detect); Bordetella pertussis Not Detected (Not Detect); Chlamydophila pneumoniae Not Detected (Not Detect); Coronavirus 229E Not Detected (Not Detect); Coronavirus HKU1 Not Detected (Not Detect); Coronavirus NL 63 Not Detected (Not Detect); Coronavirus OC43 Not Detected (Not Detect); Human Metapneumovirus Not Detected (Not Detect); Human Rhinovirus/Enterovirus Not Detected (Not Detect); Influenza A Detected (Not Detect); Influenza B Not Detected (Not Detect); Mycoplasma pneumoniae Not Detected (Not Detect); Parainfluenza Virus 1 Not Detected (Not Detect); Parainfluenza Virus 2 Not Detected (Not Detect); Parainfluenza Virus 3 Not Detected (Not Detect); Parainfluenza Virus 4 Not Detected (Not Detect); Respiratory Syncytial Virus Not Detected (Not Detect)
[2018-10-01] VITALS (16 sets, daily range): BP systolic 116–150; BP diastolic 54–89; PULSE 68–80; RESP 16–20; TEMP 35.9–36.8; O2SAT 90–96
[2018-10-01] MEDS: DEXTROSE 5%-0.9% NS 1,000 ML 100 ML IV ×2 (04:31→16:32)
[2018-10-01] MEDS: ALBUTEROL 2.5 MG/3 ML NEB (ADULT) INH ×4 (05:00→19:38)
[2018-10-01 05:21] LABS: Add Manual Diff / Slide Review NO; Basophils Absolute Auto 100 /uL (0-100); Eosinophils Absolute Auto 100 /uL (0-450); Eosinophils Percent Auto 1.1 % (2-4); Hematocrit 42.8 % (36-46); Hemoglobin 14.2 g/dL (12.0-16.0); Lymphocytes Absolute Auto 1700 /uL (1100-4500); Lymphocytes Percent Auto 32.4 % (25-40); Mean Corpuscular HGB Conc 33.1 % (30-36); Mean Corpuscular Volume 93.5 fL (80-100); Monocytes Absolute Auto 800 /uL (0-900); Monocytes Percent Auto 15.1 % (3-14); Neutrophils Absolute Auto 2600 /uL (1500-7000); Neutrophils Percent Auto 50.4 % (50-75); Platelet Count 154 X10^3/uL (150-400); Red Blood Cell Count 4.58 X10^6/uL (4.0-5.2); Red Cell Distribution Width 14.4 % (11.6-14.8); White Blood Cell Count 5.1 X10^3/uL (4.5-11.0)
[2018-10-01 05:31] LABS: Alanine Aminotransferase 44 IU/L (9-52); Albumin 3.8 g/dL (3.5-5.0); Albumin Globulin Ratio 1.2 (1.0-2.8); Alkaline Phosphatase 64 U/L (38-126); Aspartate Aminotransferase 40 IU/L (14-36); BUN Creatinine Ratio 27.1 (6-22); Bilirubin Total 0.4 mg/dL (0.2-1.3); Blood Urea Nitrogen 19 mg/dL (7-17); Calcium 8.6 mg/dL (8.4-10.2); Carbon Dioxide 33 mmol/L (22-32); Chloride 101 mmol/L (98-107); Estimated Glomerular Filt Rate > 60.0 mL/min (>60); Globulin 3.2 g/dL (1.7-4.1); Glucose 112 mg/dL (80-110); HEMOLYSIS < 15 (0-50); Potassium 3.4 mmol/L (3.4-5.1); Sodium 142 mmol/L (137-145)
[2018-10-01 06:07] LABS: B Type Natriuretic Peptide < 100 (<100)
[2018-10-01] MEDS: LEVOTHYROXINE 50 MCG TABLET PO (07:01)
[2018-10-01] MEDS: ENOXAPARIN 40 MG/0.4 ML SYRINGE SUBCUT (08:29)
[2018-10-01] MEDS: METOPROLOL ER 25 MG TABLET PO (08:29)
[2018-10-01] MEDS: OSELTAMIVIR 75 MG CAPSULE PO ×2 (08:29→20:56)
--- NOTE | 2018-10-01 17:14 | P.PN_ITS ---
Subjective Date Patient Seen: 10/01/18 Interval history: Chart reviewed patient seen and examined. Patient continues to have cough with yellow productive sputum. She continues to have shortness of breath. She was also noted to be hypoxic. Room air saturation drops to 89-90%. She continues to be short of breath. She is making slow improvement but continues to feel below her baseline. Exam Vital Signs (past 8 hours): - 10/01/18 11:30 10/01/18 13:27 10/01/18 15:30 Temperature 96.7 F L Pulse Rate 80 71 Respiratory Rate 18 18 Blood Pressure 130/89 Pulse Oximetry 93 93 90 L 10/01/18 15:35 10/01/18 15:43 10/01/18 16:59 Temperature 98.0 F Pulse Rate 78 Respiratory Rate 20 Blood Pressure 116/56 L Pulse Oximetry 96 94 94 Fraction of Inspired Oxygen 24 Oxygen Delivery Method Nasal Cannula Oxygen Flow Rate 2 Narrative Exam Narrative: Pleasant female ill-appearing and short of breath Lungs: Decreased breath sounds with end-expiratory wheezing and scattered rhonchi Cardiac exam: Regular rate and rhythm normal S1-S2 Abdomen: Soft nontender nondistended Extremities: No edema Objective Labs Result Diagrams: 10/01/18 05:07 10/01/18 05:07 Labs: Laboratory Results - last 24 hr 09/30/18 10/01/18 10/01/18 22:05 05:07 05:07 WBC 5.1 RBC 4.58 Hgb 14.2 Hct 42.8 MCV 93.5 MCH 31.0 MCHC 33.1 RDW 14.4 Plt Count 154 Neut % (Auto) 50.4 Lymph % (Auto) 32.4 [place] % (Auto) 15.1 H Eos % (Auto) 1.1 L Baso % (Auto) 1.0 Neut # (Auto) 2600 Lymph # (Auto) 1700 [place] # (Auto) 800 Eos # (Auto) 100 Baso # (Auto) 100 Sodium 142 Potassium 3.4 Chloride 101 Carbon Dioxide 33 H BUN 19 H Creatinine 0.70 Estimated GFR > 60.0 BUN/Creatinine Ratio 27.1 H Glucose 112 H Calcium 8.6 Total Bilirubin 0.4 AST 40 H ALT 44 Alkaline Phosphatase 64 B-Natriuretic Peptide < 100 Total Protein 7.0 Albumin 3.8 Globulin 3.2 Albumin/Globulin Ratio 1.2 Chlamy pneumoniae PCR Not detected Adenovirus (PCR) Not detected B.parapertussis DNA PCR Not detected Coronavirus OC43 (PCR) Not detected Coronavirus HKU1 (PCR) Not detected Coronavirus 229E (PCR) Not detected Coronavirus NL63 (PCR) Not detected Human Metapneumovir PCR Not detected Influenza Type A (PCR) Detected H Influenza Type B (PCR) Not detected M. pneumoniae (PCR) Not detected Parainfluenza 1 (PCR) Not detected Parainfluenza 2 (PCR) Not detected Parainfluenza 3 (PCR) Not detected Parainfluenza 4 (PCR) Not detected RSV (PCR) Not detected Entero/Rhino (PCR) Not detected Assessment & Plan Assessment & Plan narrative: Acute respiratory failure present on admission secondary to influenza A Acute influenza, present on admission Morbid obesity Hypothyroidism Hypertension Plan continue with Tamiflu, continue nebulizer treatment, anticipate discharge home once the patient is no longer hypoxic on room air. Quality VTE Deep Vein Thrombosis/Pulmonary Embolism Present on Admission: No
[2018-10-01] MEDS: MIRTAZAPINE 15 MG TABLET 30 MG PO (20:56)
[2018-10-02] VITALS (17 sets, daily range): BP systolic 116–139; BP diastolic 61–85; PULSE 71–85; RESP 14–22; TEMP 36.6–37.3; O2SAT 89–97
--- NOTE | 2018-10-02 03:55 | PC.NURSE ---
Workgroup Leader Note: 0000: Awake, resting in bed. Vital signs stable. Remains on O2 2L/NC. IV in place in rt hand. Pt denies pain or discomfort at this time. Up to bathroom with sba.
[2018-10-02] MEDS: LEVOTHYROXINE 50 MCG TABLET PO (06:39)
[2018-10-02] MEDS: ALBUTEROL 2.5 MG/3 ML NEB (ADULT) INH ×3 (07:24→19:23)
[2018-10-02] MEDS: ENOXAPARIN 40 MG/0.4 ML SYRINGE SUBCUT (08:22)
[2018-10-02] MEDS: OSELTAMIVIR 75 MG CAPSULE PO ×2 (08:23→21:03)
[2018-10-02] MEDS: METOPROLOL ER 25 MG TABLET PO (08:23)
[2018-10-02] MEDS: ACETAMINOPHEN 325 MG TABLET 650 MG PO ×2 (09:23→22:25)
--- NOTE | 2018-10-02 11:17 | P.PN_ITS ---
Subjective Date Patient Seen: 10/02/18 Interval history: Patient continues to have a cough and some shortness of br eath. That he she remains hypoxic at rest. Room air O2 sat this morning was 89%. Patient has not ambulated yet. She also reports feeling very weak. She was unable to sleep last evening and was awake from 3-6 a.m.. The patient has a torn meniscus and complains of pain in the left knee. In addition she has not had a bowel movement and has a history of constipation. Exam Vital Signs (past 8 hours): - 10/02/18 03:57 10/02/18 07:24 10/02/18 07:41 Temperature 97.8 F Pulse Rate 85 80 Respiratory Rate 20 18 Blood Pressure 132/85 Pulse Oximetry 92 97 89 L 10/02/18 07:43 10/02/18 08:00 10/02/18 08:23 Temperature 98.5 F Pulse Rate 83 83 Respiratory Rate 22 Blood Pressure 138/75 138/75 Pulse Oximetry 92 90 L Fraction of Inspired Oxygen 24 Oxygen Delivery Method Nasal Cannula Oxygen Flow Rate 1 Narrative Exam Narrative: Pleasant female resting comfortably somewhat short of breath and ill-appearing Lungs: Decreased breath sounds with scattered crackles and rhonchi Cardiac exam: Regular rate and rhythm normal S1 and S2 with 2/6 systolic ejection murmur Abdomen: Soft nontender nondistended without hepatosplenomegaly Extremities: No edema Objective Labs Result Diagrams: 10/01/18 05:07 10/01/18 05:07 Assessment & Plan Assessment & Plan narrative: 1. Acute respiratory failure secondary to influenza a 2. Influenza A 3. Morbid obesity 4. Hypertension 5. Hypothyroidism 6. Constipation Plan will continue Tamiflu, continue her usual antihypertensive treatment, will start her on a bowel regimen. Will continue to monitor her oxygenation. Patient will continue albuterol Atrovent inhalers. The goal is discharged home once her room air sat is above 92%. Quality VTE Deep Vein Thrombosis/Pulmonary Embolism Present on Admission: No
[2018-10-02] MEDS: POLYETHYLENE GLYCOL 3350 17 GM POWD.PACK PO ×2 (11:45→21:03)
[2018-10-02] MEDS: SENNOSIDES 8.6 MG TABLET 17.2 MG PO ×2 (11:45→21:03)
[2018-10-02] MEDS: MIRTAZAPINE 15 MG TABLET 30 MG PO (21:02)
[2018-10-03] VITALS (15 sets, daily range): BP systolic 118–147; BP diastolic 62–85; PULSE 73–81; RESP 15–20; TEMP 36.3–36.9; O2SAT 88–95
[2018-10-03] MEDS: ALBUTEROL 2.5 MG/3 ML NEB (ADULT) INH ×3 (05:14→18:33)
[2018-10-03] MEDS: LEVOTHYROXINE 50 MCG TABLET PO (05:39)
--- NOTE | 2018-10-03 05:48 | PC.NURSE ---
Slept well last night, RT. awaken her for her TX. Denies any DUENAS, CP & other discomfort. Will cont. POC & monitor.
[2018-10-03] MEDS: ACETAMINOPHEN 325 MG TABLET 650 MG PO (08:41)
[2018-10-03] MEDS: OSELTAMIVIR 75 MG CAPSULE PO ×2 (08:41→20:43)
[2018-10-03] MEDS: SENNOSIDES 8.6 MG TABLET 17.2 MG PO ×2 (08:41→20:43)
[2018-10-03] MEDS: ENOXAPARIN 40 MG/0.4 ML SYRINGE SUBCUT (08:41)
[2018-10-03] MEDS: METOPROLOL ER 25 MG TABLET PO (08:41)
[2018-10-03] MEDS: POLYETHYLENE GLYCOL 3350 17 GM POWD.PACK PO (08:42)
--- NOTE | 2018-10-03 13:25 | P.PN_ITS ---
Subjective Date Patient Seen: 10/03/18 Interval history: She is seen today to follow-up her influenza a and hypoxia. She remains hypoxic at 88% on room air, requiring 1-2 L to maintain sats in the low 90s. She is feeling much better Exam Vital Signs (past 8 hours): - 10/03/18 05:55 10/03/18 07:50 10/03/18 08:41 Temperature 98.1 F Pulse Rate 76 Respiratory Rate 20 Blood Pressure 146/83 H 146/83 H Pulse Oximetry 93 93 10/03/18 08:52 10/03/18 08:53 10/03/18 09:00 Temperature 97.8 F Pulse Rate 75 Respiratory Rate 18 Blood Pressure 142/76 H Pulse Oximetry 92 88 L 92 10/03/18 10:20 10/03/18 13:18 Temperature 98.3 F Pulse Rate 75 80 Respiratory Rate 16 18 Blood Pressure 118/62 Pulse Oximetry 93 94 Fraction of Inspired Oxygen 24 Oxygen Delivery Method Nasal Cannula Oxygen Flow Rate 2 Narrative Exam Narrative: Alert and oriented x3. No apparent distress. Heart is regular rate and rhythm without murmur. Lungs are clear to auscultation bilaterally. Extremities have no ankle edema. Objective Labs Result Diagrams: 10/01/18 05:07 10/01/18 05:07 Assessment & Plan Assessment & Plan narrative: 1. Acute respiratory failure secondary to influenza a 2. Influenza A 3. Morbid obesity 4. Hypertension 5. Hypothyroidism 6. Constipation Plan will continue Tamiflu, continue her usual antihypertensive treatment and on a bowel regimen. Will continue to monitor her oxygenation. Patient will continue albuterol Atrovent inhalers. The goal is discharge to home once her room air sat is above 92%. That is expected to occur later today or tomorrow She will be following up with Dr. Martinez in [facility]. Quality VTE Deep Vein Thrombosis/Pulmonary Embolism Present on Admission: No
[2018-10-03] MEDS: SODIUM CHLORIDE 0.9% FLUSH 10 ML IV (20:42)
[2018-10-03] MEDS: MIRTAZAPINE 15 MG TABLET 30 MG PO (20:43)
[2018-10-04] VITALS (14 sets, daily range): BP systolic 124–156; BP diastolic 75–88; PULSE 67–84; RESP 16–20; TEMP 36.7–37.2; O2SAT 89–96
--- NOTE | 2018-10-04 03:51 | PC.NURSE ---
Addendum entered by Dennis Macedo R.N. 10/04/18 05:35: continues to sleep well, offers no overt c/o. Original Note: Assumed care from Sharyn COLE. Called to room to assist Pt to BR. Up and steady though using walker. Resettled to bed with warm blankets.Offers no overt c/o. states very comfortable with warm blankets. Continue to monitor.
[2018-10-04] MEDS: LEVOTHYROXINE 50 MCG TABLET PO (06:13)
[2018-10-04] MEDS: ALBUTEROL 2.5 MG/3 ML NEB (ADULT) INH ×2 (06:33→21:14)
[2018-10-04] MEDS: ENOXAPARIN 40 MG/0.4 ML SYRINGE SUBCUT (08:47)
[2018-10-04] MEDS: SODIUM CHLORIDE 0.9% FLUSH 10 ML IV ×2 (08:47→21:16)
[2018-10-04] MEDS: OSELTAMIVIR 75 MG CAPSULE PO ×2 (08:48→21:15)
[2018-10-04] MEDS: METOPROLOL ER 25 MG TABLET PO (08:48)
[2018-10-04] MEDS: ACETAMINOPHEN 325 MG TABLET 650 MG PO ×2 (08:49→21:15)
--- NOTE | 2018-10-04 10:49 | PM.PN.1 ---
Subjective Date Patient Seen: 10/04/18 Time Patient Seen: 10:50 Interval history: She is seen today to follow-up for influenza a and continued hypoxia. She is 96% on 1 L but only 89% on room air. She is doing her breathing exercises and respiratory therapy has been working with [place] closely[place] home oxygen because she does not have a chronic pulmonary disease. Exam Vital Signs (past 8 hours): - 10/04/18 04:00 10/04/18 06:34 10/04/18 07:47 Temperature 98.9 F 98.4 F Pulse Rate 84 72 82 Respiratory Rate 20 18 17 Blood Pressure 156/88 H 142/75 H Pulse Oximetry 95 96 94 10/04/18 09:44 Temperature Pulse Rate Respiratory Rate Blood Pressure Pulse Oximetry 93 Fraction of Inspired Oxygen 24 Oxygen Delivery Method Nasal Cannula Oxygen Flow Rate 2 Narrative Exam Narrative: She is alert and oriented x3. There is no apparent distress. Heart is regular rate and rhythm no murmur. Lungs clear to auscultation bilaterally. Extremities no ankle edema. Objective Labs Result Diagrams: 10/01/18 05:07 10/01/18 05:07 Assessment & Plan Assessment & Plan narrative: 1. Acute respiratory failure secondary to influenza A 2. Influenza A 3. Morbid obesity 4. Hypertension 5. Hypothyroidism 6. Constipation Plan will continue Tamiflu, continue her usual antihypertensive treatment and will continue to monitor her oxygenation. Patient will continue albuterol Atrovent inhalers. The goal is discharge to home once her room air sat is above 92%. That is expected to occur later today or tomorrow. Consider repeat CXR. She will be following up with Dr. Martinez on [facility]. Quality VTE Deep Vein Thrombosis/Pulmonary Embolism Present on Admission: No
--- NOTE | 2018-10-04 12:15 | PM.CHAP ---
visit with Zuleima. she is disappointed to be staying in the hospital for a few more days. she is worried about her grand daughter.
--- NOTE | 2018-10-04 13:40 | PC.NURSE ---
O2 sats decrease to 88 - 89% on room air, and 94% on 2L. Lungs clear. Not able to be discharged due to this hypoxia, per Dr Calderon. Pt in agreement with this decision as lives on [facility]. Pt sleeping during the shift intermittently. Tylenol given for headache in the am.
[2018-10-04] MEDS: MIRTAZAPINE 15 MG TABLET 30 MG PO (21:15)
[2018-10-05] VITALS (14 sets, daily range): BP systolic 118–153; BP diastolic 60–93; PULSE 75–96; RESP 15–18; TEMP 36.3–37.4; O2SAT 90–95
--- NOTE | 2018-10-05 | DI.RAD.S_ITS ---
PROCEDURE: XR CHEST 2V INDICATIONS: hypoxia TECHNIQUE: 2 views of the chest were acquired. COMPARISON: [facility], CR, XR CHEST 1V, 09/30/2018, 14:59. FINDINGS: Surgical changes and devices: None. Lungs and pleura: Lungs are mildly edematous. No pleural effusions or pneumothorax. Mediastinum: Mediastinal contours are normal. Heart size is at the upper limits of normal. Bones and chest wall: No suspicious bony abnormalities. Soft tissues appear unremarkable. IMPRESSION: Mild pulmonary edema pattern, heart size at upper limits of normal, no definite consolidative pneumonia or pleural effusion. Dictated by: Ben Roman M.D. on 10/05/2018 at 8:17 Approved by: Ben Roman M.D. on 10/05/2018 at 8:18
--- NOTE | 2018-10-05 00:45 | PC.NURSE ---
Guest Advisor Note: 0030: Awake, vital signs stable. IV in place in rt AC. Pt denies pain or discomfort. Remains on O2 via NC. Pt remains in droplet precautions for Influenza A.
[2018-10-05] MEDS: ALBUTEROL 2.5 MG/3 ML NEB (ADULT) INH ×2 (06:10→12:43)
[2018-10-05] MEDS: LEVOTHYROXINE 50 MCG TABLET PO (06:49)
[2018-10-05] MEDS: ACETAMINOPHEN 325 MG TABLET 650 MG PO (06:49)
--- NOTE | 2018-10-05 08:42 | PM.PN.1 ---
Subjective Date Patient Seen: 10/05/18 Time Patient Seen: 08:42 Interval history: She is seen today to follow-up her apparent COPD related hypoxia and influenza A. The oxygenation continues to remain stable requiring 1-2 L of nasal cannula to maintain sats above 90%. She is 93% on 2 L this morning. A chest x-ray is done showing what appears to be mild pulmonary edema. She is also wheezing today which is new. She tells me that she smoked for 20 years. She has had no prior diagnosis of COPD. Exam Vital Signs (past 8 hours): - 10/05/18 00:47 10/05/18 04:00 10/05/18 06:10 Temperature 97.4 F L Pulse Rate 90 75 Respiratory Rate 18 18 Blood Pressure 153/93 H Pulse Oximetry 95 92 93 10/05/18 08:00 Temperature 98.4 F Pulse Rate 79 Respiratory Rate 16 Blood Pressure 130/75 Pulse Oximetry 92 Fraction of Inspired Oxygen 24 Oxygen Delivery Method Nasal Cannula Oxygen Flow Rate 2 Narrative Exam Narrative: Alert and oriented x3. In no apparent distress. Heart is regular rate and rhythm without murmur. Extremities have no ankle edema Lungs have wheezing bilaterally. Objective Labs Result Diagrams: 10/01/18 05:07 10/01/18 05:07 Assessment & Plan Assessment & Plan narrative: 1. Acute respiratory failure secondary to influenza A 2. Influenza A 3. Morbid obesity 4. Hypertension 5. Hypothyroidism 6. Constipation 7. COPD 9. Possible Pulmonary edema. Give Lasix IV, begin prednisone oral, continue Tamiflu and anticipate discharge home later today or tomorrow with or without oxygen. The smoking history and the wheezing heard today are consistent with COPD and so a home oxygen delivery device may be able to be arranged based on that chronic illness. She will be following up with Dr. Martinez on [facility]. Quality VTE Deep Vein Thrombosis/Pulmonary Embolism Present on Admission: No
[2018-10-05] MEDS: ENOXAPARIN 40 MG/0.4 ML SYRINGE SUBCUT (09:45)
[2018-10-05] MEDS: predniSONE 20 MG TABLET PO (09:45)
[2018-10-05] MEDS: POLYETHYLENE GLYCOL 3350 17 GM POWD.PACK PO (09:46)
[2018-10-05] MEDS: OSELTAMIVIR 75 MG CAPSULE PO (09:46)
[2018-10-05] MEDS: METOPROLOL ER 25 MG TABLET PO (09:46)
[2018-10-05] MEDS: SODIUM CHLORIDE 0.9% FLUSH 10 ML IV (09:47)
[2018-10-05] MEDS: FUROSEMIDE 40 MG/4 ML VIAL IV (09:49)
--- NOTE | 2018-10-05 11:34 | PC.NURSE ---
Addendum entered by Shobha Anne R.N. 10/05/18 14:57: Weaned down to 1L O2 with sats 93% at rest. She voided a lot after getting the IV Lasix, but does not feel like it made any obvious improvement in her respiratory status. This ad copy writer let Dr Calderon know and he is going to have RT evaluate for home O2 (patient may qualify now that she has a diagnosis of COPD which she did not have prior to this admit). Sitting up in chair watching TV and visiting with family. Denies needs but calls appropriately. Light in reach. Original Note: Shift summary: Awake & alert, oriented X3. Had a 2-view chest x-ray this morning. Dr Calderon ordered a 1X dose of IV Lasix and she states she has been peeing like a racehorse since she got it. Had 3 unmeasured voids and she agreed to put the hat in the toilet for next time. Ambulating in room independently or with SBA. Gait steady and safely manages the O2 tubing on her own. Sats on 1.5L 91-94%. Lungs with scattered expiratory wheezes and fine crackles in L base (prior to Lasix admin). Intermittent non-productive cough. Remains on droplet iso. for influenza. Able to make needs known and calls appropriately. Sitting up in the chair at the moment for closer, quicker access to the bathroom. Call light in reach.
--- NOTE | 2018-10-05 15:20 | RT ---
Exercise oximetry conducted. O2 sats at rest, room air: 90%, pulse 92 O2 sats with exertion, room air: 88%, pulse 97 O2 sats with exertion, 2 lpm: 92%, pulse 100 Rec: Home O2, room air at rest, 2 lpm with exertion.
--- NOTE | 2018-10-05 15:21 | P.DS_ITS ---
History of Present Illness Date Patient Seen: 10/05/18 Chief complaint: SOB Narrative: The patient is a 72-year-old female with a history of hypertension, hypothyroidism who was in her usual state of health until about 5 days ago. Patient states about that time she developed cough muscle aches headache fever and chills. She states her symptoms became progressively worse. She had more shortness of breath and wheezing. Her cough was productive with yellow phlegm. She reports having had a flu shot this year. She has been unable to sleep for the past few days. Patient reports having nausea vomiting and diarrhea yesterday. Because of her progressive symptoms she presented to the emergency room for evaluation. In the emergency department the patient was found to be influenza a positive. Given her oxygenation with an O2 sat of 80% on room air she was admitted for further evaluation. Plans were made for her to go home however the patient continued to desaturate in the emergency room. Discharge Providers Date of admission: 09/30/18 16:28 Primary care physician: Dylan Maza MD Consults: 09/30/18 14:52 Consult to Respiratory Therapy Evaluate & Treat Comment: Physician Instructions: Evaluate and treat Discharge provider: Shiela Calderon MD Discharge Date: 10/05/18 Summary Discharge Diagnosis: 1. Acute respiratory failure secondary to influenza A 2. Influenza A 3. Morbid obesity 4. Hypertension 5. Hypothyroidism 6. Constipation 7. COPD 9. Possible Pulmonary edema. 10.Hypoxia Hospital Course: Time Patient Seen: 08:42 Interval history: She is seen today to follow-up her apparent COPD related hypoxia and influenza A. The oxygenation continues to remain stable requiring 1-2 L of nasal cannula to maintain sats above 90%. She is 93% on 2 L this morning. A chest x-ray is done showing what appears to be mild pulmonary edema. She is also wheezing today which is new. She tells me that she smoked for 20 years. She has had no prior diagnosis of COPD. Temperature 97.4 F L Pulse Rate 90 75 Respiratory Rate 18 18 Blood Pressure 153/93 H Exam Narrative: Alert and oriented x3. In no apparent distress. Heart is regular rate and rhythm without murmur. Extremities have no ankle edema Lungs have wheezing bilaterally. 1. Acute respiratory failure secondary to influenza A 2. Influenza A 3. Morbid obesity 4. Hypertension 5. Hypothyroidism 6. Constipation 7. COPD 9. Possible Pulmonary edema. Give Lasix IV, begin prednisone oral, continue Tamiflu and anticipate discharge home later today or tomorrow with oxygen. The smoking history and the wheezing heard today are consistent with COPD and so a home oxygen delivery device will be arranged based on that chronic illness. She will be following up with Dr. Martinez on [facility]. She has completed a full 5 day course of Tamiflu. She is seen, [id number] today, for home oxygen qualification. She was not hypoxic at rest as her room air sats were 90% at rest. However with exertion on room air her room-air sats were 88%. With exertion on 2 L nasal cannular her oxygen saturation improved to 92%. I am ordering home oxygen, room air at rest, and 2 liters/minute with exertion to help treat her COPD, resolving influenza, hypoxia. Status at Discharge Functional status at discharge: independent ambulation Overall status at discharge: patient is progressing back to baseline Time Spent with Patient Greater than 30 minutes Exam Vital Signs (past 8 hours): - 10/05/18 08:00 10/05/18 10:21 10/05/18 11:03 Temperature 98.4 F Pulse Rate 79 Respiratory Rate 16 Blood Pressure 130/75 Pulse Oximetry 92 92 93 10/05/18 11:34 10/05/18 12:40 10/05/18 13:00 Temperature 98.2 F Pulse Rate 84 84 Respiratory Rate 15 18 Blood Pressure 145/83 H Pulse Oximetry 93 94 94 10/05/18 14:34 Temperature Pulse Rate Respiratory Rate Blood Pressure Pulse Oximetry 93 Fraction of Inspired Oxygen 1 Oxygen Delivery Method Nasal Cannula Oxygen Flow Rate 1 Objective Labs Result Diagrams: 10/01/18 05:07 10/01/18 05:07 Discharge Plan Discharge Plan Patient Disposition: Home Discharge comment: Please follow up with your doctor on [facility] within a week. Continue using oxygen until you see your doctor for more testing. Discharge Med Rec/Prescriptions Prescriptions: New prednisone 20 mg Tablet 20 mg PO DAILY Qty: 10 RF: 0 Continued levothyroxine 50 mcg tablet 50 mcg PO DAILY RF: 0 mirtazapine 30 mg tablet 30 mg PO BEDTIME RF: 0 hydrochlorothiazide 25 mg tablet 50 mg PO DAILY RF: 0 metoprolol succinate 25 mg tablet extended release 24 hr 25 mg PO DAILY RF: 0 Stool Softener 1 dose PO PRN PRN (Reason: Constipation) RF: 0 Vitamins 1 dose PO DAILY RF: 0 Follow up/Referrals: Dylan Maza MD [Primary Care Provider] - Provider Discharge Instructions Oxygen: Wear 2 liters of oxygen at home while walking until you see your doctor Discharge Data Primary Care Provider: Dylan Maza Attending Provider: Ju Munson Admit Date/Time: 09/30/18 16:28 Quality VTE Deep Vein Thrombosis/Pulmonary Embolism Present on Admission: No
--- NOTE | 2018-10-05 17:05 | RT ---
Home O2 setup with [facility]. Information sent to [facility], including O2 sats, demo celina, order and face to face notes. Cdl Service Technician Adrián called, he cant make it to [facility], but a [facility] Rep will make it there tomorrow.
--- NOTE | 2018-10-05 17:12 | PC.NURSE ---
evening shift/discharge note- Patient d/c'ed home. reviewed all discharge paperworking and education with patient paperwork signed. help patient pack up allpersonal belongings and recheck room for persoanl items. [place] boarding pass given to patient and faxed to [employer] terminal. patient left via wheelchair to private car with spouse at 1715.
== END 2018-10-05 17:12 | disposition home or self-care (01) | DRG 189 ==
LOC: ED 16:28 → AC 16:51
PROVIDERS: Admitting Provider Internal Medicine; Emergency Provider Nurse Practitioner Family; PCP Family Medicine; Visit Provider Internal Medicine
DX: J96.01 Acute respiratory failure with hypoxia (principal); Z68.41 Body mass index [BMI] 40.0-44.9, adult; J81.1 Chronic pulmonary edema; J10.1 Influenza due to other identified influenza virus with other respiratory manifestations; E66.01 Morbid (severe) obesity due to excess calories; I10 Essential (primary) hypertension; E03.9 Hypothyroidism, unspecified; K59.00 Constipation, unspecified; Z87.891 Personal history of nicotine dependence; J44.9 Chronic obstructive pulmonary disease, unspecified
CPT/HCPCS: 36415; 36591; 71045; 71046; 80053; 81001; 82550; 82553; 83605; 83880; 84145; 84484; 85025; 85379; 87040; 87400; 87633; 93005; 94640; 94760; 94762; 96360; 96361; 99283; 99285; J1650; J1940; J7613

== ENCOUNTER → 2021-12-29 10:53 | Outpatient (CLI) | payer MEDICARE, SELFPAY ==
[2018-09-30 17:33] VITALS: BMI 33.9
[2021-12-29 19:58] LABS: COVID19 - ORCAS (NP or Nasal) Negative (Negative)
== END ==
PROVIDERS: PCP Family Medicine; Visit Provider Physician Assistant Medical
DX: J06.9 Acute upper respiratory infection, unspecified (principal); Z20.822 Contact with and (suspected) exposure to COVID-19
CPT/HCPCS: U0003

== ENCOUNTER → 2023-02-21 12:08 | Outpatient (CLI) | payer MEDICARE, OTHER, SELFPAY ==
[2018-09-30 17:33] VITALS: BMI 33.9
--- NOTE | 2023-02-21 | DI.ECHO.S_ITS ---
[facility] +---------+ [facility] +---------+ : : [address] : : : [place], [place] : : : : [id number] : : : : Phone: [phone] Echocardiogram Report + + :Name: JAMES PEDRAZA Study Date: 02/21/2023 Height: 65 in : :[facility] ReadingLocation: Weight: 240 lb : : Gender: Female BSA: 2.1 m2 : :: 1945 Age: 77 yrs BP: 163/124 mmHg: :Reason For Study: Other Forms of Dyspnea : :Ordering Physician: LANDON, : :REBECCA Performed By: Marleny Loza : :Referring: REBECCA NAVARRETE : + + Interpretation Summary Technically difficult tudy. Grossly normal left ventricle size with ejection fraction 65-70%. No significant valvular abnormality. Procedure: A two-dimensional transthoracic echocardiogram with color flow and Doppler was performed. The study quality was technically difficult. The patient has COPD. There is no prior echocardiogram noted for this patient. The patient was in normal sinus rhythm during the exam. Left Ventricle: The left ventricle is grossly normal size. The ejection fraction is estimated to be 65-70%. There are no obvious focal wall motion abnormalities noted but poor endocardial definition reduces the sensitivity for the detection of such. Diastolic parameters suggest a relaxation abnormality of the left ventricle, consistent with probable normal filling pressures. Right Ventricle: The right ventricle is normal in size and function. Atria: The left atrial size is normal. Right atrial size is normal. There is no Doppler evidence for an interatrial shunt. Mitral Valve: The mitral valve is normal. There is no mitral valve stenosis. There is no mitral regurgitation noted. Aortic Valve: The aortic valve is trileaflet. There is no aortic valve stenosis. No aortic regurgitation is present. Tricuspid Valve: The tricuspid valve is not well visualized. There is no tricuspid stenosis. There is trace tricuspid regurgitation. Pulmonic Valve: The pulmonic valve is not well visualized. There is no pulmonic valvular stenosis. There is no pulmonic valvular regurgitation. Great Vessels: The aortic root is not well visualized. The ascending aorta is normal in size. The pulmonary is not well visualized. The IVC is of normal diameter and collapses greater than 50% with a sniff. This suggests a low right atrial pressure of 3 mm Hg. Pericardium/ Pleura There is no pericardial effusion. There is no pleural effusion. MMode/2D Measurements & Calculations asc Aorta Diam: 3.6 cm LA A2 area: 19.2 cm2 LA A4 area: 14.2 cm2 LA length (vol): 5.7 cm LA vol: 40.7 ml LA vol index: 19.0 ml/m2 RA long axis: 4.9 cm RVD1 (basal): 3.5 cm RA area: 14.7 cm2 RA vol: 37.3 ml RA : 17.5 ml/m2 LVLs ap4: 6.0 cm LVLd ap2: 6.4 cm LVLs ap2: 5.3 cm TAPSE_phl: 2.2 cm Doppler Measurements & Calculations Ao V2 max: 184.0 cm/sec LVOT Max Oscar: 132.0 cm/sec Ao V2 mean: 120.0 cm/sec LV V1 max P.0 mmHg Ao max P.0 mmHg LV V1 VTI: 28.7 cm Ao mean P.0 mmHg sev ratio: 0.79 Ao V2 VTI: 36.3 cm MV E max oscar: 93.4 cm/sec AV VR_phl: 0.72 MV A max oscar: 102.0 cm/sec MV E/A: 0.92 Med Peak E' Oscar: 4.5 cm/sec E/E' med: 21.0 Lat Peak E' Oscar: 6.9 cm/sec E/E' lat: 13.6 E/e' average: 17.3 MV dec time: 0.23 sec MV P1/2t-pr_phl: 66.0 msec Electronically signed by: Freddy Burns on Reading Physician:02/21/2023 04:42 PM
--- NOTE | 2023-02-21 | DI.MRI.S_ITS ---
PROCEDURE: MR ABDOMEN WO CON INDICATIONS: Other forms of dyspnea Abnormal liver enzymes. TECHNIQUE: Coronal HASTE through the abdomen, axial 2-D FLASH in- and [id number], and breath-hold T2 FSE with fat saturation through the biliary system and pancreas. Oblique coronal and axial thin-slice HASTE, radial thick-slab HASTE centered on the extrahepatic bile ducts. Intravenous secretin: Not requested. COMPARISON: [facility], CT, CT ABDOMEN WITH/WITHOUT CONTRAST, 06/04/2022, 11:40. FINDINGS: Image quality: Motion degraded. Sub optimal coil was also used due to body habitus. Lower chest: No pleural effusions. Lungs are not well evaluated on MRI. No hiatal hernia. Solid organs: Only minimal steatosis is identified on chemical shift imaging. No suspicious focal lesion. The left lobe is relatively hypertrophied with prominent fissures. No suspicious focal lesion. Gallbladder is unremarkable. No pathologic pancreatic ductal dilation. No definite filling chemical shift artifact or signal loss on long TE images in the spleen. No adrenal nodules. No hydronephrosis. Vessels and lymph nodes: No abdominal aortic aneurysm or pathologic adenopathy by size criteria. Bowel and peritoneum: No bowel obstruction or pathologic ascites. Body wall: Unremarkable Bones: No acute or suspicious osseous finding. There are degenerative changes. IMPRESSION: Left lobe hypertrophy and prominent hepatic fissures suggestive of nonspecific chronic liver insufficiency. No convincing contour nodularity or secondary signs of portal hypertension. Only minimal regional steatosis is noted on chemical shift imaging. No evidence of secondary iron overload in the spleen. Borderline prominent CBD, without definite filling defect. ERCP could further evaluate if clinically indicated. Please note imaging limitations and other findings above. Dictated by: Isaias Solares M.D. on 02/22/2023 at 8:34 Approved by: Isaias Solares M.D. on 02/22/2023 at 8:43
== END ==
PROVIDERS: PCP Family Medicine; Referring Provider Internal Medicine Gastroenterology; Visit Provider Internal Medicine Gastroenterology
DX: R06.09 Other forms of dyspnea (principal); R94.5 Abnormal results of liver function studies
CPT/HCPCS: 74181; 93306

== ENCOUNTER 2025-08-13 21:06 | Emergency (ER) | payer MEDICARE, OTHER, SELFPAY ==
[2018-09-30 17:33] VITALS: BMI 33.9
[2025-08-13] VITALS (13 sets, daily range): BP systolic 127–167; BP diastolic 57–113; PULSE 55–70; RESP 20–31; TEMP 37.3; O2SAT 70–99; BMI 39.1
--- NOTE | 2025-08-13 21:08 | ED.GENADULT ---
HPI - General Adult General Chief complaint: Syncope Stated complaint: Syncope Time Seen by Provider: 08/13/25 21:07 History of Present Illness HPI narrative: 79-year-old who has a history of hypothyroidism, lower extremity edema for which she takes Lasix, hypertension, and uses 4L oxygen at night for her COPD has had viral gastroenteritis type symptoms for the last 1 week, over the last 2-4 days she has been having vomiting and diarrhea. Notes that the last diarrhea seemed to be this morning. Only abdominal pain is prior to diarrheal episodes are with the effort of vomiting. Was with her , stood up at home, became quite pale and then experienced a syncopal episode. Patient is from [facility]. She was come to the and give hypotensive by medics. 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 She needed to void and had a another syncopal episode with systolic noted to be 100. We gave her 4 mg of Zofran oxygen saturations were lightly down and responded nicely to history is nasal cannula oxygen. She arrives in the ER alert and appropriate. She was given Zofran prior to arrival along with 500 cc of LR. Related Data Home Medications ?Medication ?Instructions ?Recorded ?Confirmed Stool Softener 1 dose PO PRN PRN Constipation 09/30/18 07/06/25 Vitamins 1 dose PO DAILY 09/30/18 07/06/25 hydrochlorothiazide 25 mg tablet 50 mg PO DAILY 09/30/18 07/06/25 levothyroxine 50 mcg tablet 50 mcg PO DAILY 09/30/18 07/06/25 metoprolol succinate 25 mg 25 mg PO DAILY 09/30/18 08/13/25 tablet,extended release 24 hr mirtazapine 30 mg tablet 30 mg PO BEDTIME 09/30/18 07/06/25 furosemide 20 mg tablet 20 mg PO BID 08/13/25 08/13/25 Previous Rx's ?Medication ?Instructions ?Recorded prednisone 20 mg tablet 20 mg PO DAILY #10 tabs 10/05/18 Allergies Allergy/AdvReac Type Severity Reaction Status Date / Time Penicillins Allergy Hives Verified 07/06/25 10:03 Review of Systems Review of Systems Narrative: Pertinent positive and negative findings as per HPI Patient History Medical History (Updated 08/14/25 @ 04:13 by Marilin Harrison MD) COPD (chronic obstructive pulmonary disease) Hypothyroidism Hypertension Surgical History History of tonsillectomy H/O hysterectomy for benign disease Family History Mother Cerebral aneurysm Social History household members: spouse alcohol intake: never Exam Initial Vital Signs Initial Vital Signs: Vital Signs Pulse Rate 65 08/13/25 21:12 Respiratory Rate 24 08/13/25 21:12 Pulse Oximetry 71 L 08/13/25 21:12 Oxygen Delivery Method Nasal Cannula 08/13/25 21:12 Oxygen Flow Rate 4 08/13/25 21:12 General: in no acute distress. Able to give a complete and coherent history. HEENT: Moist mucous membranes, normal sclera with reactive pupils, Neck: No JVD, supple Respiratory: Tachypneic, Lungs are clear to auscultation, no wheezing no rales no rhonchi. Full and symmetrical air movement, speaking in full sentences with saturations in the 90% range Cardiac: Regular rate and rhythm 3/6 systolic murmur Abdomen: Soft, nontender, no rebound or guarding, no flank pain Skin: Warm and dry, chronic venous stasis changes bilaterally Neurologic: Grossly neurologically intact with no obvious asymmetries or abnormalities Extremities: No trauma, no significant lower extremity edema Psych: Cooperative, appropriate insight and affect Course Orders Ordered: ED Orders 08/13/25 21:15 BNP [NT-proBNP (BNP-Adult 18+)] Stat Complete Blood Count AUTO DIFF Stat Comprehensive Metabolic Panel Stat D Dimer Stat Lipase Stat Magnesium Stat PHOS [Phosphorous] Stat Trop I [Troponin I] Stat 08/13/25 21:17 XR chest 1V Stat 08/13/25 22:28 CT angio chest PE protocol Stat 08/14/25 00:06 EKG-12 Lead Stat 08/14/25 00:28 Trop I [Troponin I] Stat Discontinued Medications Sodium Chloride (Normal Saline 0.9%) 1,000 mls @ 1,000 mls/hr IV BOLUS ONE Stop: 08/13/25 22:16 Last Infusion: 08/14/25 03:01 Dose: Infused Documented By: Admin: 08/13/25 22:13 Dose: 1,000 mls/hr Documented By: SHILO Vital Signs Vital signs: Vital Signs - 8 hr 08/13/25 21:12 08/13/25 21:14 08/13/25 21:14 Temperature Pulse Rate 65 63 Respiratory Rate 24 30 H Blood Pressure 128/65 Pulse Oximetry 71 L 80 L Oxygen Delivery Method Nasal Cannula Nasal Cannula Oxygen Flow Rate 4 4 08/13/25 21:15 08/13/25 21:30 08/13/25 22:00 Temperature 99.1 F Pulse Rate 65 58 L 55 L Respiratory Rate 20 31 H 25 H Blood Pressure 128/65 Pulse Oximetry 70 L 98 98 Oxygen Delivery Method Room Air Nasal Cannula Nasal Cannula Oxygen Flow Rate 4 4 08/13/25 22:01 08/13/25 22:01 08/13/25 22:30 Temperature Pulse Rate 56 L 57 L Respiratory Rate 22 29 H Blood Pressure 127/60 Pulse Oximetry 98 98 Oxygen Delivery Method Nasal Cannula Nasal Cannula Oxygen Flow Rate 4 4 08/13/25 22:31 08/13/25 22:31 08/13/25 22:55 Temperature Pulse Rate 57 L Respiratory Rate 29 H Blood Pressure 138/79 137/62 Pulse Oximetry 99 Oxygen Delivery Method Nasal Cannula Oxygen Flow Rate 4 08/13/25 22:55 08/13/25 23:00 08/13/25 23:00 Temperature Pulse Rate 70 65 Respiratory Rate 29 H Blood Pressure 130/57 L Pulse Oximetry 83 L 95 Oxygen Delivery Method Nasal Cannula Nasal Cannula Oxygen Flow Rate 4 4 08/13/25 23:30 08/13/25 23:31 08/13/25 23:31 Temperature Pulse Rate 62 64 Respiratory Rate 30 H Blood Pressure 140/113 H Pulse Oximetry 97 98 Oxygen Delivery Method Nasal Cannula Oxygen Flow Rate 4 08/13/25 23:37 08/13/25 23:37 08/14/25 00:00 Temperature Pulse Rate 61 62 Respiratory Rate 31 H 29 H Blood Pressure 167/67 H Pulse Oximetry 97 99 Oxygen Delivery Method Nasal Cannula Oxygen Flow Rate 4 08/14/25 00:01 08/14/25 00:01 08/14/25 00:30 Temperature Pulse Rate 63 61 Respiratory Rate 24 20 Blood Pressure 119/58 L Pulse Oximetry 100 95 Oxygen Delivery Method Nasal Cannula Nasal Cannula Oxygen Flow Rate 4 3 08/14/25 01:00 08/14/25 01:30 08/14/25 01:30 Temperature Pulse Rate 60 64 Respiratory Rate 17 23 Blood Pressure 127/61 Pulse Oximetry 96 95 Oxygen Delivery Method Nasal Cannula Oxygen Flow Rate 3 08/14/25 02:00 08/14/25 02:00 08/14/25 02:30 Temperature Pulse Rate 65 Respiratory Rate 20 Blood Pressure 120/63 122/60 Pulse Oximetry 96 Oxygen Delivery Method Nasal Cannula Oxygen Flow Rate 3 08/14/25 02:30 08/14/25 03:00 08/14/25 03:00 Temperature Pulse Rate 63 62 Respiratory Rate 27 H 28 H Blood Pressure 124/59 L Pulse Oximetry 97 95 Oxygen Delivery Method Nasal Cannula Oxygen Flow Rate 3 Medical Decision Making Lab Data 08/13/25 21:15 08/13/25 21:15 Labs: Lab Results 08/13/25 08/14/25 Range/Units 21:15 00:28 WBC 9.9 (4.5-11.0) X10^3/uL RBC 4.09 (4.0-5.2) X10^6/uL Hgb 12.9 (12.0-16.0) g/dL Hct 38.9 (36-46) % MCV 95.1 (80-100) fL MCH 31.6 (26-34) PG MCHC 33.2 (30-36) % RDW 14.2 (11.6-14.8) % Plt Count 168 (150-400) X10^3/uL Neut % (Auto) 81.9 H (50-75) % Lymph % (Auto) 9.9 L (25-40) % [place] % (Auto) 7.2 (3-14) % Eos % (Auto) 0.5 L (2-4) % Baso % (Auto) 0.5 (0-2) % Neut # (Auto) 8100 H (6720-1518) /uL Lymph # (Auto) 1000 L (1207-8287) /uL [place] # (Auto) 700 (0-900) /uL Eos # (Auto) 0 (0-450) /uL Baso # (Auto) 0 (0-100) /uL D-Dimer 1503 H (<500) ng/ml Sodium 139 (137-145) mmol/L Potassium 4.3 (3.4-5.1) mmol/L Chloride 95 L (98-107) mmol/L Carbon Dioxide 38 H (22-32) mmol/L BUN 16 (7-17) mg/dL Creatinine 0.79 (0.52-1.04) mg/dL Estimated GFR > 60 (>60) mL/min BUN/Creatinine Ratio 20.3 (6-22) Glucose 119 H (70-99) mg/dL Calcium 9.2 (8.4-10.2) mg/dL Phosphorus 3.0 (2.8-4.1) mg/dL Magnesium 1.8 (1.6-2.3) mg/dL Total Bilirubin 0.6 (0.2-1.3) mg/dL AST 46 H (14-36) IU/L ALT 46 H (<35) IU/L Alkaline Phosphatase 87 (38-126) U/L Troponin I 0.016 0.013 (0.01-0.034) ng/mL NT-Pro-B Natriuret Pep 348 (<450) pg/mL Total Protein 7.0 (6.3-8.2) g/dL Albumin 4.1 (3.5-5.0) g/dL Globulin 2.9 (1.7-4.1) g/dL Albumin/Globulin Ratio 1.4 (1.0-2.8) Lipase 43 (23-300) U/L Imaging Data CT scan - chest: Radiologist's Impression: PROCEDURE: CT ANGIO CHEST PE PROTOCOL INDICATIONS: elevated d dimer TECHNIQUE: After the administration of intravenous contrast, 2 mm thick sections acquired from the pulmonary apices to the posterior costophrenic angles. 3-dimensional maximum intensity projection (MIP) coronal and sagittal reformats were then acquired through the thorax. For radiation dose reduction, the following was used: automated exposure control, adjustment of mA and/or kV according to patient size. COMPARISON: None. FINDINGS: Image quality: Diagnostic Lungs and pleura: Mild diffuse septal thickening. Scattered atelectasis. More focal nodule is present in the lingula, appearing calcified likely representing a granuloma. More nodular region also seen in the left lower lobe subpleural region measuring 8 mm (5/211). Mediastinum, heart, and esophagus: No acute pulmonary embolism. Distended main pulmonary artery measuring 3.5 cm. Mild diffuse thoracic aortic calcifications. Coronary calcifications. No lymph nodes enlarged by size criteria. Heart size is at the upper limit of normal. Chest wall and thyroid: Unremarkable Upper abdomen: No gross abnormality on these arterial phase images Bones: Degenerative osseous findings. No aggressive appearing osseous abnormality. Old left rib deformities. IMPRESSION: No acute pulmonary embolism. Distended main pulmonary artery, which can be seen with elevated pulmonary pressures. Mild opacities, septal thickening, and atelectasis in the lower lungs. Slightly more nodular regions are present for example left lower lobe measuring 8 mm subpleural region. Consider future imaging surveillance to assess for resolution. These could be infectious/inflammatory versus mild edema No effusions. Coronary calcifications. Other findings above. Dictated by: Isaias Solares M.D. on 08/13/2025 at 23:13 MDM Narrative Medical decision making narrative: CC: Nausea and vomiting with diarrhea Complicating co-morbidities: Lives on [facility], 2 episodes of orthostatic hypotension and near-syncope today Data collected from: patient, medics Medical records reviewed: Patient was hospitalized for complications of influenza a in September of 2018, that hospitalization is reviewed Differential considered: Functional diarrhea, Clostridium difficile, viral gastroenteritis, severe dehydration, acute coronary syndrome, kidney failure, significant electrolyte abnormalities Exam documented above, pertinent findings include: 79-year-old woman slight tachypnea and hypoxia, she is on 4 L of oxygen at home when sleeping and on 4 L of oxygen comes up nicely to 95%. Minimal rales or rhonchi. Lab Test results independently reviewed as above. Pertinent findings: CBC is reassuring Chemistries are unremarkable. Creatinine is appropriate. AST and ALT are minimally elevated at 46 respectively First and 2nd troponins are undetectable BNP is not elevated D-dimer is elevated Independently reviewed EKG: EKG shows sinus rhythm at a rate of 62. No acute ischemic changes appreciated Imaging studies independently reviewed: Chest x-ray suggests mild pulmonary edema with trace bilateral pleural effusions CT angiogram done because of elevated D-dimer shows mild diffuse septal thickening in lungs and pleura. No pulmonary edema. Distended main pulmonary artery question of pulmonary hypertension. Opacity septal thickening and atelectasis in the lower lungs that could be infectious versus inflammatory versus edematous. Treatments: She is given ondansetron by medics, a L of fluid in the emergency depart Re-evaluations: Discussion: 79-year-old woman with viral gastroenteritis type symptoms for the last week. It was vomiting today and had 2 episodes of near-syncope secondary to orthostatic hypotension. Workup does not suggest significant bacterial infection, acute coronary syndrome, severe congestive heart failure, viral pneumonia or pulmonary embolism. After being hydrated, she is able to eat and drink. She is no longer orthostatic. Nausea has improved. I do not have any other life-threatening explanations for her symptoms today. I suspect that this was a viral gastroenteritis. There was no sign of acute surgical abdomen no indication for hospitalization and her orthostatic hypotension seems to have resolved. She will be safely discharged with her family Discharge Plan Departure Patient Disposition: Home Clinical Impression: Orthostatic hypotension Nausea & vomiting Qualifiers: Vomiting type: unspecified Qualified Code(s): R11.2 - Nausea with vomiting, unspecified Instructions: Nausea and Vomiting-Adult Activity Restrictions/Additional Instructions: Thank you for coming in today Your workup showed no evidence of severe bacterial infection, your kidney function and renal function seem appropriate. You were slightly dehydrated and received a L of fluid from the medics in his 2 L of fluid in the emergency department. You were given IV nausea medication and have not have any additional vomiting. One of your blood test suggested that there maybe abnormalities in your lungs so a CT scan of the lungs was done. There was no evidence of significant pneumonia, blood clots or other life-threatening abnormalities on your lung exam. I believe that is safe for you to go home at this point. The most likely explanation for the diarrhea and then vomiting is some type of virus. I am going to send you home with a small amount of nausea medication should you have recurrent episodes of vomiting. Please make sure you are drinking small amounts of fluid regularly, electrolyte solution such as Gatorade or liquid IV the best. If you find that you are getting worse or develop any new symptoms, please feel free to return to the emergency department for further evaluation. Prescriptions: No Action levothyroxine 50 mcg tablet 50 mcg PO DAILY mirtazapine 30 mg tablet 30 mg PO BEDTIME hydrochlorothiazide 25 mg tablet 50 mg PO DAILY metoprolol succinate 25 mg tablet extended release 24 hr 25 mg PO DAILY Stool Softener 1 dose PO PRN PRN (Reason: Constipation) Patient Comments: patient states takes stool softener. unknown dose. Vitamins 1 dose PO DAILY Patient Comments: patient states takes vitamins unknown specifics and strengths prednisone 20 mg Tablet 20 mg PO DAILY Qty: 10 0RF furosemide 20 mg tablet 20 mg PO BID Referrals: Dylan Martinez MD [Primary Care Provider, Family Practice] Stand Alone Forms: Patient Portal/API
--- NOTE | 2025-08-13 21:17 | DI.RAD.S_ITS ---
PROCEDURE: XR CHEST 1V INDICATIONS: dyspnea TECHNIQUE: One view of the chest was acquired. COMPARISON: [facility], CR, XR CHEST 2V, 10/05/2018, 7:48. [facility], CR, XR CHEST 1V, 09/30/2018, 14:59. FINDINGS: Surgical changes and devices: None. Lungs and pleura: Blunting of the bilateral costophrenic angles. No pneumothorax. Central pulmonary vascular congestion. Mediastinum: Mediastinal contours appear normal. Heart size is mildly enlarged. Bones and chest wall: No suspicious bony lesions. Overlying soft tissues appear unremarkable. IMPRESSION: Mild pulmonary edema with trace bilateral pleural effusions. Dictated by: Lionel Hanson M.D. on 08/13/2025 at 21:48 Approved by: Lionel Hanson M.D. on 08/13/2025 at 21:49
--- NOTE | 2025-08-13 21:29 | PC.NURSE ---
this nurse and two others boosted pt up in bed, placed purewick, gown, cleaned pt and sheets, as well as hospital socks, warm blanket and clean/dry brief
[2025-08-13 21:34] LABS: Add Manual Diff / Slide Review NO; Hematocrit 38.9 % (36-46); Hemoglobin 12.9 g/dL (12.0-16.0); Lymphocytes Absolute Auto 1000 /uL (1100-4500); Mean Corpuscular HGB Conc 33.2 % (30-36); Mean Corpuscular Hemoglobin 31.6 PG (26-34); Mean Corpuscular Volume 95.1 fL (80-100); Platelet Count 168 X10^3/uL (150-400)
--- NOTE | 2025-08-13 21:36 | PC.NURSE ---
see triage note for details, abd soft and non tender, pt states diarrhea stopped earlier today, skin dry, pt states she has been trying to push fluids but has had a decreased appetite
[2025-08-13 21:42] LABS: Alanine Aminotransferase 46 IU/L (<35); Albumin 4.1 g/dL (3.5-5.0); Albumin Globulin Ratio 1.4 (1.0-2.8); Alkaline Phosphatase 87 U/L (38-126); Blood Urea Nitrogen 16 mg/dL (7-17); Calcium 9.2 mg/dL (8.4-10.2); Carbon Dioxide 38 mmol/L (22-32); Chloride 95 mmol/L (98-107); Estimated Glomerular Filt Rate > 60 mL/min (>60); Globulin 2.9 g/dL (1.7-4.1); Glucose 119 mg/dL (70-99); HEMOLYSIS 33 (0-50); Lipase 43 U/L (23-300); Magnesium 1.8 mg/dL (1.6-2.3); Potassium 4.3 mmol/L (3.4-5.1); Sodium 139 mmol/L (137-145); Total Protein 7.0 g/dL (6.3-8.2)
[2025-08-13 21:43] LABS: Phosphorous 3.0 mg/dL (2.8-4.1)
[2025-08-13 21:54] LABS: Troponin I 0.016 ng/mL (0.01-0.034)
[2025-08-13] MEDS: SODIUM CHLORIDE 0.9% 1,000 ML 1000 ML IV (22:13)
--- NOTE | 2025-08-13 22:28 | DI.CT.S_ITS ---
PROCEDURE: CT ANGIO CHEST PE PROTOCOL INDICATIONS: elevated d dimer TECHNIQUE: After the administration of intravenous contrast, 2 mm thick sections acquired from the pulmonary apices to the posterior costophrenic angles. 3-dimensional maximum intensity projection (MIP) coronal and sagittal reformats were then acquired through the thorax. For radiation dose reduction, the following was used: automated exposure control, adjustment of mA and/or kV according to patient size. COMPARISON: None. FINDINGS: Image quality: Diagnostic Lungs and pleura: Mild diffuse septal thickening. Scattered atelectasis. More focal nodule is present in the lingula, appearing calcified likely representing a granuloma. More nodular region also seen in the left lower lobe subpleural region measuring 8 mm (5/211). Mediastinum, heart, and esophagus: No acute pulmonary embolism. Distended main pulmonary artery measuring 3.5 cm. Mild diffuse thoracic aortic calcifications. Coronary calcifications. No lymph nodes enlarged by size criteria. Heart size is at the upper limit of normal. Chest wall and thyroid: Unremarkable Upper abdomen: No gross abnormality on these arterial phase images Bones: Degenerative osseous findings. No aggressive appearing osseous abnormality. Old left rib deformities. IMPRESSION: No acute pulmonary embolism. Distended main pulmonary artery, which can be seen with elevated pulmonary pressures. Mild opacities, septal thickening, and atelectasis in the lower lungs. Slightly more nodular regions are present for example left lower lobe measuring 8 mm subpleural region. Consider future imaging surveillance to assess for resolution. These could be infectious/inflammatory versus mild edema No effusions. Coronary calcifications. Other findings above. Dictated by: Isaias Solares M.D. on 08/13/2025 at 23:13 Approved by: Isaias Solares M.D. on 08/13/2025 at 23:19
[2025-08-13 23:06] LABS: NT-proBNP (BNP-Adult 18+) 348 pg/mL (<450)
[2025-08-14] VITALS (12 sets, daily range): BP systolic 119–155; BP diastolic 58–71; PULSE 60–70; RESP 17–29; O2SAT 95–100
--- NOTE | 2025-08-14 00:19 | EKG_ITS ---
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
[2025-08-14 01:15] LABS: Troponin I 0.013 ng/mL (0.01-0.034)
--- NOTE | 2025-08-14 03:01 | PC.NURSE ---
Per verbal order from provider, finished 1000 ml LR from the medics/air lift prior to starting NS ordered here. Total of 2000 ml fluids via IV given
[2025-08-14] MEDS: ONDANSETRON 4 MG ODT PREPACK 1 BOTTLE MISC (04:20)
== END 2025-08-14 04:35 | disposition home or self-care (01) ==
PROVIDERS: Emergency Provider Emergency Medicine; PCP Family Medicine
DX: I95.1 Orthostatic hypotension (principal); R11.2 Nausea with vomiting, unspecified; R19.7 Diarrhea, unspecified; I10 Essential (primary) hypertension
CPT/HCPCS: 36415; 71045; 71275; 80053; 83690; 83735; 83880; 84100; 84484; 85025; 85379; 93005; 96360; 96361; 99284; J7030; Q9967